=== PATIENT | male | born 1940 | race Caucasian/White ===

== ENCOUNTER → 2018-01-09 06:48 | Outpatient (CLI) | payer MEDICARE, OTHER, SELFPAY ==
--- NOTE | 2018-01-09 16:14 | PFTCOMP ---
COMPLETE PULMONARY FUNCTION TEST INTERPRETATION Brief HPI: Patient is a 77 year old male, currently under the care of myself, who presents to [facility] for complete pulmonary function tests secondary to diagnosis of abnormal pulmonary function test. Respiratory therapist reports good effort and reproducible results. Interpretation: Forced expiration spirometry shows no large airways obstructive ventilatory defect with an FEV1 of 64 % predicted. There is no significant bronchodilator response by ATS criteria. Spirograms are of good quality and plateau normally. The respiratory flow volume loop shows a normal pattern. Lung volumes by body plethysmography show a decreased total lung capacity at 4.48 L, 79% predicted. All other lung volumes are within normal limits. Diffusion capacity by carbon monoxide is normal at 83 % predicted. The airway resistance is elevated. Compared to previous pulmonary function tests from 01/03/2017, there has been a significant improvement in TLC and DLCO. 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
--- NOTE | 2018-01-09 16:17 | PFTCOMP_ITS ---
COMPLETE PULMONARY FUNCTION TEST INTERPRETATION Brief HPI: Patient is a 77 year old male, currently under the care of myself, who presents to [facility] for complete pulmonary function tests secondary to diagnosis of abnormal pulmonary function test. Respiratory therapist reports good effort and reproducible results. Interpretation: Forced expiration spirometry shows no large airways obstructive ventilatory defect with an FEV1 of 64 % predicted. There is no significant bronchodilator response by ATS criteria. Spirograms are of good quality and plateau normally. The respiratory flow volume loop shows a normal pattern. Lung volumes by body plethysmography show a decreased total lung capacity at 4.48 L, 79% predicted. All other lung volumes are within normal limits. Diffusion capacity by carbon monoxide is normal at 83 % predicted. The airway resistance is elevated. Compared to previous pulmonary function tests from 01/03/2017, there has been a significant improvement in TLC and DLCO. 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
== END ==
PROVIDERS: Family Provider Family Medicine Geriatric Medicine; PCP Family Medicine Geriatric Medicine; Visit Provider Internal Medicine Critical Care Medicine
DX: R94.2 Abnormal results of pulmonary function studies (principal)
CPT/HCPCS: 94060; 94726; 94729

== ENCOUNTER → 2018-01-16 10:08 | Outpatient (CLI) | payer MEDICARE, OTHER, SELFPAY ==
[2018-01-16 12:16] LABS: Absolute Lymphocyte Count 1.09 X10^3/ul (0.83-4.51); Basophil# 0.02 X10^3/uL; Basophil% 0.4 % (0-1); Eosinophil# 0.06 X10^3/uL; Eosinophils% 1.3 % (0-5); Hemoglobin 12.1 g/dl (13.0-16.5); Lymphocyte # 1.09 X10^3/ul (4.0); Lymphocyte % 24.2 % (19-41); Mean Corp Hgb Conc 31.8 g/gl (32-36); Mean Corpuscular Hgb 30.7 pg (27.0-32.0); Mean Corpuscular Volume 96.4 fL (80-94); Mean Platelet Vol. 12.2 fl (6.2-12.0); Monocyte# 0.32 X10^3/uL; Monocyte% 7.1 % (0-10); Neutrophil % 66.8 % (47-70); Platelet Count 99 K/mm3 (150-450); RBC Distribution Width CV 14.9 % (11.6-14.6); RBC Distribution Width SD 50.9 fl (35.1-43.9); Red Blood Count 3.94 M/mm3 (4.6-6.2); White Blood Count 4.5 K/mm3 (4.4-11.0)
[2018-01-16 12:27] LABS: POSITIVE COUNT NO; POSITIVE DIFFERENTIAL NO; POSITIVE MORPHOLOGY NO
[2018-01-16 12:32] LABS: ALB/GLOB Ratio 0.8 RATIO (0.9-2.4); AST(SGOT) 67 U/L (15-37); Alanine Aminotransfer ALT/SGPT 46 U/L (16-61); Albumin, Serum 3.2 g/dL (3.2-5.0); Alkaline Phosphatase 162 U/L (45-117); Anion Gap 7 (5-15); BUN 17 mg/dL (7-18); BUN/Creat Ratio 9.8 RATIO (10-20); Calcium,Total 8.6 mg/dL (8.5-10.1); Chloride 109 mmol/L (98-107); Creatinine, Serum 1.74 mg/dL (0.70-1.30); EST Glomerular Filtration Rate 41 mL/min (>60); Est Glom Filt Rate - Afr Amer 49 mL/min (>60); Globulin 4.1 g/dL (2.2-4.2); Glucose 173 mg/dL (74-106); Potassium 4.2 mmol/L (3.5-5.1); Protein, Total 7.3 g/dL (6.4-8.2); Sodium Level 141 mmol/L (136-145); Thyroid Stim Hormone (TSH) 2.96 uIU/mL (0.358-3.74)
== END ==
PROVIDERS: Family Provider Family Medicine Geriatric Medicine; PCP Family Medicine Geriatric Medicine; Visit Provider Family Medicine Geriatric Medicine
DX: E11.9 Type 2 diabetes mellitus without complications (principal); E55.9 Vitamin D deficiency, unspecified; F52.8 Other sexual dysfunction not due to a substance or known physiological condition; I10 Essential (primary) hypertension
CPT/HCPCS: 36415; 80053; 82306; 84403; 84443; 85025

== ENCOUNTER → 2018-01-30 09:41 | Outpatient (CLI) | payer MEDICARE, OTHER, SELFPAY ==
[2018-01-30 10:29] LABS: Protein, Urine (Random) 31.4 mg/dL (<11.9); Protein:Creat Ratio 268 mg/g CRE (0-200)
[2018-01-30 10:43] LABS: PTHIN 142.3 pg/mL (18.4-80.1)
[2018-01-30 10:45] LABS: Vitamin D,25 Hydroxy 34.1 ng/mL (29.95-100.01)
[2018-01-30 10:47] LABS: BUN 14 mg/dL (7-18); BUN/Creat Ratio 8.3 RATIO (10-20); Calcium,Total 8.2 mg/dL (8.5-10.1); Chloride 111 mmol/L (98-107); Creatinine, Serum 1.69 mg/dL (0.70-1.30); EST Glomerular Filtration Rate 42 mL/min (>60); Est Glom Filt Rate - Afr Amer 51 mL/min (>60); Glucose 195 mg/dL (74-106); Phosphorus 2.7 mg/dL (2.5-4.9); Potassium 4.3 mmol/L (3.5-5.1); Sodium Level 144 mmol/L (136-145)
== END ==
PROVIDERS: Family Provider Family Medicine Geriatric Medicine; PCP Family Medicine Geriatric Medicine; Visit Provider Internal Medicine Nephrology
DX: E11.22 Type 2 diabetes mellitus with diabetic chronic kidney disease (principal); N18.3 Chronic kidney disease, stage 3 (moderate)
CPT/HCPCS: 36415; 80069; 82306; 82570; 83970; 84156

== ENCOUNTER → 2018-03-27 11:15 | Outpatient (CLI) | payer MEDICARE, OTHER, SELFPAY ==
[2018-03-27 12:53] LABS: PSA,Total - Annual Screen 1.83 ng/mL (0.00-4.00)
== END ==
PROVIDERS: Family Provider Family Medicine Geriatric Medicine; PCP Family Medicine Geriatric Medicine; Visit Provider Urology
DX: Z12.5 Encounter for screening for malignant neoplasm of prostate (principal); R68.83 Chills (without fever)
CPT/HCPCS: 36415; 84153; 87633; G0103

== ENCOUNTER → 2018-05-16 11:25 | Outpatient (CLI) | payer MEDICARE, OTHER, SELFPAY ==
[2018-05-16 13:00] LABS: Absolute Lymphocyte Count 0.99 X10^3/ul (0.83-4.51); Basophil# 0.01 X10^3/uL; Basophil% 0.2 % (0-1); Eosinophil# 0.04 X10^3/uL; Eosinophils% 0.9 % (0-5); Hematocrit 29.6 % (40-54); Hemoglobin 9.1 g/dl (13.0-16.5); Lymphocyte # 0.99 X10^3/ul (4.0); Lymphocyte % 22.7 % (19-41); Mean Corp Hgb Conc 30.7 g/gl (32-36); Mean Corpuscular Hgb 29.4 pg (27.0-32.0); Mean Corpuscular Volume 95.5 fL (80-94); Mean Platelet Vol. 10.2 fl (6.2-12.0); Monocyte% 6.9 % (0-10); Neutrophil # 3.01 X10^3/uL (2.7-7.7); Neutrophil % 69.1 % (47-70); Platelet Count 105 K/mm3 (150-450); RBC Distribution Width CV 14.9 % (11.6-14.6); RBC Distribution Width SD 52.4 fl (35.1-43.9); White Blood Count 4.4 K/mm3 (4.4-11.0)
[2018-05-16 13:02] LABS: POSITIVE COUNT NO; POSITIVE DIFFERENTIAL NO; POSITIVE MORPHOLOGY NO
[2018-05-16 13:40] LABS: ALB/GLOB Ratio 0.8 RATIO (0.9-2.4); AST(SGOT) 61 U/L (15-37); Alanine Aminotransfer ALT/SGPT 50 U/L (16-61); Albumin, Serum 2.9 g/dL (3.2-5.0); Alkaline Phosphatase 131 U/L (45-117); Anion Gap 6 (5-15); BUN 19 mg/dL (7-18); BUN/Creat Ratio 11.1 RATIO (10-20); Calcium,Total 8.4 mg/dL (8.5-10.1); Chloride 111 mmol/L (98-107); Creatinine, Serum 1.71 mg/dL (0.70-1.30); EST Glomerular Filtration Rate 41 mL/min (>60); Est Glom Filt Rate - Afr Amer 50 mL/min (>60); Globulin 3.8 g/dL (2.2-4.2); Glucose 131 mg/dL (74-106); Potassium 4.2 mmol/L (3.5-5.1); Protein, Total 6.7 g/dL (6.4-8.2); Sodium Level 144 mmol/L (136-145); Thyroid Stim Hormone (TSH) 1.45 uIU/mL (0.358-3.74); Uric Acid 5.4 mg/dL (3.5-7.2)
[2018-05-17 08:47] LABS: Vitamin D,25 Hydroxy 43.7 ng/mL (29.95-100.01)
== END ==
PROVIDERS: Family Provider Family Medicine Geriatric Medicine; PCP Family Medicine Geriatric Medicine; Visit Provider Family Medicine Geriatric Medicine
DX: E11.9 Type 2 diabetes mellitus without complications (principal); E55.9 Vitamin D deficiency, unspecified; F52.8 Other sexual dysfunction not due to a substance or known physiological condition; I10 Essential (primary) hypertension; M10.9 Gout, unspecified
CPT/HCPCS: 36415; 80053; 82306; 84403; 84443; 84550; 85025

== ENCOUNTER → 2018-06-12 10:44 | Outpatient (CLI) | payer MEDICARE, OTHER, SELFPAY ==
[2018-06-12 13:38] LABS: Ferritin 12 ng/mL (26-388); Iron 60 ug/dL (65-175); Iron Binding Capacity,Total 407 ug/dL (250-450)
== END ==
PROVIDERS: Family Provider Family Medicine Geriatric Medicine; PCP Family Medicine Geriatric Medicine; Visit Provider Family Medicine Geriatric Medicine
DX: D64.9 Anemia, unspecified (principal)
CPT/HCPCS: 36415; 82728; 83540; 83550

== ENCOUNTER → 2018-06-20 13:24 | Outpatient (CLI) | payer MEDICARE, OTHER, SELFPAY ==
[2018-06-20 13:50] VITALS: BP 135/58; PULSE 65; RESP 18; TEMP 36.5; O2SAT 98; BMI 39.1
== END ==
PROVIDERS: Family Provider Family Medicine Geriatric Medicine; PCP Family Medicine Geriatric Medicine; Visit Provider Family Medicine Geriatric Medicine
DX: D50.9 Iron deficiency anemia, unspecified (principal); N18.3 Chronic kidney disease, stage 3 (moderate)
CPT/HCPCS: 96365; J1756; J7050; A4216

== ENCOUNTER → 2018-06-23 14:24 | Outpatient (CLI) | payer MEDICARE, OTHER, SELFPAY ==
[2018-06-23 14:33] VITALS: BP 167/70; PULSE 69; RESP 16; TEMP 37.3; O2SAT 99; BMI 39.1
== END ==
PROVIDERS: Family Provider Family Medicine Geriatric Medicine; PCP Family Medicine Geriatric Medicine; Visit Provider Family Medicine Geriatric Medicine
DX: D50.9 Iron deficiency anemia, unspecified (principal); N18.3 Chronic kidney disease, stage 3 (moderate)
CPT/HCPCS: 96365; J1756; J7050; A4216

== ENCOUNTER → 2018-06-26 14:27 | Outpatient (CLI) | payer MEDICARE, OTHER, SELFPAY ==
[2018-06-26 14:34] VITALS: BP 166/74; PULSE 64; RESP 16; TEMP 37.1; BMI 39.1
== END ==
PROVIDERS: Family Provider Family Medicine Geriatric Medicine; PCP Family Medicine Geriatric Medicine; Visit Provider Family Medicine Geriatric Medicine
DX: D50.9 Iron deficiency anemia, unspecified (principal); N18.3 Chronic kidney disease, stage 3 (moderate)
CPT/HCPCS: 96365; J1756; J7040; A4216

== ENCOUNTER → 2018-06-28 14:23 | Outpatient (CLI) | payer MEDICARE, OTHER, SELFPAY ==
[2018-06-28 14:31] VITALS: BP 145/95; PULSE 64; RESP 18; TEMP 36.9; O2SAT 99
== END ==
PROVIDERS: Family Provider Family Medicine Geriatric Medicine; PCP Family Medicine Geriatric Medicine; Visit Provider Family Medicine Geriatric Medicine
DX: N18.3 Chronic kidney disease, stage 3 (moderate) (principal); D50.9 Iron deficiency anemia, unspecified
CPT/HCPCS: 96365; J1756; J7050; A4216

== ENCOUNTER → 2018-06-30 14:30 | Outpatient (CLI) | payer MEDICARE, OTHER, SELFPAY ==
[2018-06-30 14:53] VITALS: BP 153/59; PULSE 62; RESP 16; TEMP 37.1
== END ==
PROVIDERS: Family Provider Family Medicine Geriatric Medicine; PCP Family Medicine Geriatric Medicine; Visit Provider Family Medicine Geriatric Medicine
DX: D50.9 Iron deficiency anemia, unspecified (principal); N18.3 Chronic kidney disease, stage 3 (moderate)
CPT/HCPCS: 96365; J1756; J7050; A4216

== ENCOUNTER → 2018-07-07 09:47 | Outpatient (CLI) | payer MEDICARE, OTHER, SELFPAY ==
[2018-07-07 13:00] LABS: Ferritin 109 ng/mL (26-388); Iron 73 ug/dL (65-175); Iron Binding Capacity,Total 337 ug/dL (250-450)
== END ==
PROVIDERS: Family Provider Family Medicine Geriatric Medicine; PCP Family Medicine Geriatric Medicine; Referring Provider Family Medicine Geriatric Medicine; Visit Provider Family Medicine Geriatric Medicine
DX: D64.9 Anemia, unspecified (principal)
CPT/HCPCS: 36415; 82728; 83540; 83550

== ENCOUNTER → 2018-07-21 10:23 | Outpatient (CLI) | payer MEDICARE, OTHER, SELFPAY | PROVIDERS: Family Provider Family Medicine Geriatric Medicine; PCP Family Medicine Geriatric Medicine; Visit Provider Family Medicine Geriatric Medicine | DX: R53.83 Other fatigue (principal) | CPT/HCPCS: 36415; 85014; 85018 ==

== ENCOUNTER → 2019-01-09 08:30 | Outpatient (CLI) | payer MEDICARE, OTHER, SELFPAY ==
--- NOTE | 2019-01-09 13:58 | PFTCOMP ---
COMPLETE PULMONARY FUNCTION TEST INTERPRETATION Brief HPI: Patient is a 78 year old male, currently under the care of myself, who presents to [facility] for complete pulmonary function tests secondary to diagnosis of dyspnea. Respiratory therapist reports good effort and reproducible results. Interpretation: Forced expiration spirometry shows no large airways obstructive ventilatory defect with an FEV1 of 63% predicted. There is no significant bronchodilator response by strict ATS criteria. Spirograms are of good quality and plateau normally. The respiratory flow volume loop shows a normal pattern. Lung volumes by body plethysmography show a decreased total lung capacity at 4.49 L, 79% predicted. All other lung volumes are within normal limits. Diffusion capacity by carbon monoxide is decreased at 62% predicted. The airway resistance is normal. Compared to previous pulmonary function tests from 01/09/2018, there has been a significant reduction in DLCO by 26%. Impression: Mild restrictive ventilatory defect with a reduction diffusion capacity that is out of proportion. Significant worsening compared to previous study.
--- NOTE | 2019-01-09 14:01 | PFTCOMP_ITS ---
COMPLETE PULMONARY FUNCTION TEST INTERPRETATION Brief HPI: Patient is a 78 year old male, currently under the care of myself, who presents to [facility] for complete pulmonary function tests secondary to diagnosis of dyspnea. Respiratory therapist reports good effort and reproducible results. Interpretation: Forced expiration spirometry shows no large airways obstructive ventilatory defect with an FEV1 of 63% predicted. There is no significant bronchodilator response by strict ATS criteria. Spirograms are of good quality and plateau normally. The respiratory flow volume loop shows a normal pattern. Lung volumes by body plethysmography show a decreased total lung capacity at 4.49 L, 79% predicted. All other lung volumes are within normal limits. Diffusion capacity by carbon monoxide is decreased at 62% predicted. The airway resistance is normal. Compared to previous pulmonary function tests from 01/09/2018, there has been a significant reduction in DLCO by 26%. Impression: Mild restrictive ventilatory defect with a reduction diffusion capacity that is out of proportion. Significant worsening compared to previous study.
== END ==
PROVIDERS: Family Provider Family Medicine Geriatric Medicine; PCP Family Medicine Geriatric Medicine; Referring Provider Internal Medicine Critical Care Medicine; Visit Provider Internal Medicine Critical Care Medicine
DX: J67.0 Farmer's lung (principal); E66.01 Morbid (severe) obesity due to excess calories
CPT/HCPCS: 94060; 94726; 94729

== ENCOUNTER → 2019-01-15 10:29 | Outpatient (CLI) | payer MEDICARE, OTHER, SELFPAY ==
[2019-01-15 12:53] LABS: Vitamin D,25 Hydroxy 28.8 ng/mL (29.95-100.01)
[2019-01-15 13:04] LABS: Absolute Lymphocyte Count 0.86 X10^3/ul (0.83-4.51); Absolute Neutrophil Count 2.7 X10^3/uL (2.0-7.7); Basophil# 0.01 X10^3/uL; Basophil% 0.3 % (0-1); Eosinophil# 0.06 X10^3/uL; Eosinophils% 1.5 % (0-5); Hematocrit 34.3 % (40-54); Hemoglobin 11.1 g/dl (13.0-16.5); Lymphocyte # 0.86 X10^3/ul (4.0); Lymphocyte % 21.9 % (19-41); Mean Corp Hgb Conc 32.4 g/gl (32-36); Mean Corpuscular Hgb 30.2 pg (27.0-32.0); Mean Corpuscular Volume 93.5 fL (80-94); Mean Platelet Vol. 10.8 fl (6.2-12.0); Monocyte% 7.7 % (0-10); Neutrophil # 2.69 X10^3/uL (2.7-7.7); Neutrophil % 68.6 % (47-70); Platelet Count 103 K/mm3 (150-450); RBC Distribution Width CV 19.4 % (11.6-14.6); RBC Distribution Width SD 66.8 fl (35.1-43.9); Red Blood Count 3.67 M/mm3 (4.6-6.2); White Blood Count 3.9 K/mm3 (4.4-11.0)
[2019-01-15 13:06] LABS: ALB/GLOB Ratio 0.6 RATIO (0.9-2.4); AST(SGOT) 68 U/L (15-37); Alanine Aminotransfer ALT/SGPT 44 U/L (16-61); Albumin, Serum 2.3 g/dL (3.2-5.0); Alkaline Phosphatase 181 U/L (45-117); Anion Gap 3 (5-15); BUN 13 mg/dL (7-18); BUN/Creat Ratio 8.3 RATIO (10-20); Calcium,Total 7.8 mg/dL (8.5-10.1); Chloride 112 mmol/L (98-107); Creatinine, Serum 1.57 mg/dL (0.70-1.30); Differential Indicated SCAN CRITERIA MET; EST Glomerular Filtration Rate 46 mL/min (>60); Est Glom Filt Rate - Afr Amer 55 mL/min (>60); Globulin 4.1 g/dL (2.2-4.2); Glucose 178 mg/dL (74-106); POSITIVE COUNT NO; POSITIVE DIFFERENTIAL NO; POSITIVE MORPHOLOGY YES; Protein, Total 6.4 g/dL (6.4-8.2); Sodium Level 141 mmol/L (136-145); Thyroid Stim Hormone (TSH) 1.42 uIU/mL (0.358-3.74); Uric Acid 4.4 mg/dL (3.5-7.2)
[2019-01-15 13:59] LABS: Anisocytosis 1+
== END ==
PROVIDERS: Family Provider Family Medicine Geriatric Medicine; PCP Family Medicine Geriatric Medicine; Visit Provider Family Medicine Geriatric Medicine
DX: E11.9 Type 2 diabetes mellitus without complications (principal); I10 Essential (primary) hypertension; E55.9 Vitamin D deficiency, unspecified; F52.8 Other sexual dysfunction not due to a substance or known physiological condition; M10.9 Gout, unspecified
CPT/HCPCS: 36415; 80053; 82306; 84403; 84443; 84550; 85025

== ENCOUNTER → 2019-01-24 | Outpatient (CLI) | payer MEDICARE, OTHER, SELFPAY ==
[2018-08-15 08:47] VITALS: BMI 41.5
--- NOTE | 2019-01-24 16:54 | RAD_ITS ---
STUDY: X-RAY - ABDOMEN/PELVIS REASON FOR EXAM: Male, 78 years old. Abdominal pain. Fecal impaction. TECHNIQUE: 3 supine views of the abdomen COMPARISON: None. FINDINGS: There is no bowel obstruction. There is air and stool to the level of the rectum. There is no significant constipation. There are degenerative changes noted in the spine. RAD/Abdomen Single View IMPRESSION: No bowel obstruction. No significant constipation. Electronically Signed: Armen Menezes, at 17:26 EDT Tel , Service support ,
--- NOTE | 2019-01-24 16:57 | RAD_ITS ---
STUDY: X-RAY CHEST REASON FOR EXAM: Male, 78 years old. Shortness of breath TECHNIQUE: Frontal and lateral views of the chest COMPARISON: 05/23/2017 FINDINGS: The lungs are clear. There are no pleural effusions. There is no pneumothorax. The heart is normal in size. The visualized osseous structures are within normal limits. RAD/Chest PA and Lateral IMPRESSION: No acute thoracic pathology. Electronically Signed: Armen Menezes, at 17:23 EDT Tel , Service support ,
[2019-01-24 17:16] LABS: Absolute Lymphocyte Count 0.91 X10^3/ul (0.83-4.51); Absolute Neutrophil Count 2.8 X10^3/uL (2.0-7.7); Basophil# 0.01 X10^3/uL; Basophil% 0.2 % (0-1); Eosinophil# 0.06 X10^3/uL; Eosinophils% 1.4 % (0-5); Hematocrit 33.6 % (40-54); Hemoglobin 10.9 g/dl (13.0-16.5); Lymphocyte # 0.91 X10^3/ul (4.0); Lymphocyte % 21.6 % (19-41); Mean Corp Hgb Conc 32.4 g/gl (32-36); Mean Corpuscular Hgb 30.1 pg (27.0-32.0); Mean Corpuscular Volume 92.8 fL (80-94); Mean Platelet Vol. 9.7 fl (6.2-12.0); Monocyte# 0.45 X10^3/uL; Monocyte% 10.7 % (0-10); Neutrophil # 2.77 X10^3/uL (2.7-7.7); Neutrophil % 65.9 % (47-70); Platelet Count 95 K/mm3 (150-450); RBC Distribution Width CV 18.8 % (11.6-14.6); RBC Distribution Width SD 63.8 fl (35.1-43.9); Red Blood Count 3.62 M/mm3 (4.6-6.2); White Blood Count 4.2 K/mm3 (4.4-11.0)
[2019-01-24 17:18] LABS: POSITIVE COUNT NO; POSITIVE DIFFERENTIAL NO; POSITIVE MORPHOLOGY NO
[2019-01-24 17:22] LABS: Albumin, Serum 2.4 g/dL (3.2-5.0); BUN 16 mg/dL (7-18); BUN/Creat Ratio 9.9 RATIO (10-20); Calcium,Total 8.3 mg/dL (8.5-10.1); Chloride 112 mmol/L (98-107); Creatinine, Serum 1.62 mg/dL (0.70-1.30); EST Glomerular Filtration Rate 44 mL/min (>60); Est Glom Filt Rate - Afr Amer 53 mL/min (>60); Glucose 162 mg/dL (74-106); Phosphorus 2.2 mg/dL (2.5-4.9); Potassium 4.1 mmol/L (3.5-5.1); Sodium Level 143 mmol/L (136-145)
[2019-01-24 17:25] LABS: Protein, Urine (Random) 24.6 mg/dL (<11.9); Protein:Creat Ratio 142 mg/g CRE (0-200)
[2019-01-24 17:48] LABS: BNP,B-Type NATRIURETIC PEPTIDE 87.6 pg/mL (0-100)
== END | disposition home or self-care (01) ==
LOC: POLAB3 16:37 → RAD 16:53
PROVIDERS: Internal Medicine Nephrology; Family Provider Family Medicine Geriatric Medicine; PCP Family Medicine Geriatric Medicine; Referring Provider Family Medicine Geriatric Medicine; Visit Provider Family Medicine Geriatric Medicine
DX: R06.02 Shortness of breath (principal); E11.22 Type 2 diabetes mellitus with diabetic chronic kidney disease; N18.3 Chronic kidney disease, stage 3 (moderate); K56.41 Fecal impaction
CPT/HCPCS: 36415; 71046; 74018; 80069; 82570; 83880; 83970; 84156; 85025

== ENCOUNTER → 2019-01-25 13:07 | Outpatient (CLI) | payer MEDICARE, OTHER, SELFPAY ==
[2018-08-15 08:47] VITALS: BMI 41.5
== END ==
PROVIDERS: Family Provider Family Medicine Geriatric Medicine; PCP Family Medicine Geriatric Medicine; Referring Provider Family Medicine Geriatric Medicine; Visit Provider Family Medicine Geriatric Medicine
DX: R06.02 Shortness of breath (principal)
CPT/HCPCS: 93306; Q9957; A4216; C8929

== ENCOUNTER → 2019-01-29 11:54 | Outpatient (CLI) | payer MEDICARE, OTHER, SELFPAY ==
[2019-01-29 08:15] VITALS: BMI 42.9
[2019-01-29 13:27] LABS: Anion Gap 5 (5-15); BUN 17 mg/dL (7-18); BUN/Creat Ratio 10.4 RATIO (10-20); Calcium,Total 8.1 mg/dL (8.5-10.1); Chloride 109 mmol/L (98-107); Creatinine, Serum 1.64 mg/dL (0.70-1.30); EST Glomerular Filtration Rate 43 mL/min (>60); Est Glom Filt Rate - Afr Amer 52 mL/min (>60); Glucose 165 mg/dL (74-106); Potassium 3.6 mmol/L (3.5-5.1); Sodium Level 141 mmol/L (136-145)
== END ==
PROVIDERS: Family Provider Family Medicine Geriatric Medicine; PCP Family Medicine Geriatric Medicine; Visit Provider Family Medicine Geriatric Medicine
DX: N18.3 Chronic kidney disease, stage 3 (moderate) (principal)
CPT/HCPCS: 36415; 80048

== ENCOUNTER → 2019-02-02 10:05 | Outpatient (CLI) | payer MEDICARE, OTHER, SELFPAY ==
[2019-01-29 08:15] VITALS: BMI 42.9
[2019-02-02 12:58] LABS: Albumin, Serum 2.1 g/dL (3.2-5.0); BUN 14 mg/dL (7-18); Calcium,Total 7.8 mg/dL (8.5-10.1); Chloride 105 mmol/L (98-107); Creatinine, Serum 1.55 mg/dL (0.70-1.30); EST Glomerular Filtration Rate 46 mL/min (>60); Est Glom Filt Rate - Afr Amer 56 mL/min (>60); Glucose 118 mg/dL (74-106); Phosphorus 2.4 mg/dL (2.5-4.9); Potassium 3.6 mmol/L (3.5-5.1); Sodium Level 141 mmol/L (136-145)
[2019-02-02 13:02] LABS: Protein, Urine (Random) 19.5 mg/dL (<11.9); Protein:Creat Ratio 127 mg/g CRE (0-200)
[2019-02-02 13:17] LABS: PTHIN 112.2 pg/mL (18.4-80.1)
== END ==
PROVIDERS: Family Provider Family Medicine Geriatric Medicine; PCP Family Medicine Geriatric Medicine; Visit Provider Internal Medicine Nephrology
DX: E11.22 Type 2 diabetes mellitus with diabetic chronic kidney disease (principal); N18.3 Chronic kidney disease, stage 3 (moderate)
CPT/HCPCS: 36415; 80069; 82570; 83970; 84156

== ENCOUNTER → 2019-02-07 14:58 | Outpatient (CLI) | payer MEDICARE, OTHER, SELFPAY ==
[2019-01-29 08:15] VITALS: BMI 42.9
[2019-02-07 16:05] LABS: Hematocrit 33.7 % (40-54); Hemoglobin 10.9 g/dl (13.0-16.5); Mean Corp Hgb Conc 32.3 g/gl (32-36); Mean Corpuscular Hgb 30.4 pg (27.0-32.0); Mean Corpuscular Volume 93.9 fL (80-94); Mean Platelet Vol. 10.3 fl (6.2-12.0); Platelet Count 115 K/mm3 (150-450); RBC Distribution Width CV 17.5 % (11.6-14.6); RBC Distribution Width SD 60.1 fl (35.1-43.9); Red Blood Count 3.59 M/mm3 (4.6-6.2); White Blood Count 4.7 K/mm3 (4.4-11.0)
[2019-02-07 16:06] LABS: Scan Indicated on CBC? Y/N NO
[2019-02-07 16:21] LABS: AST(SGOT) 66 U/L (15-37); Alanine Aminotransfer ALT/SGPT 36 U/L (16-61); Albumin, Serum 2.1 g/dL (3.2-5.0); Alkaline Phosphatase 163 U/L (45-117); Bilirubin, Direct 0.67 mg/dL (0.00-0.30); Globulin 4.6 g/dL (2.2-4.2); Protein, Total 6.7 g/dL (6.4-8.2)
[2019-02-07 16:23] LABS: International Normalized Ratio 1.5; Partial Thromboplast Time 40.8 Seconds (24.1-36.2); Prothrombin Time (Protime)PT. 17.8 SECONDS (11.7-14.9)
[2019-02-09 10:28] LABS: AFP, Tumor Marker 1.6 ng/mL (0.0-8.3)
== END ==
PROVIDERS: Family Provider Family Medicine Geriatric Medicine; PCP Family Medicine Geriatric Medicine; Referring Provider Internal Medicine Gastroenterology; Visit Provider Internal Medicine Gastroenterology
DX: K76.9 Liver disease, unspecified (principal); K92.0 Hematemesis
CPT/HCPCS: 36415; 80076; 82105; 85027; 85610; 85730

== ENCOUNTER → 2019-02-12 12:18 | Outpatient (CLI) | payer MEDICARE, OTHER, SELFPAY ==
[2019-01-29 08:15] VITALS: BMI 42.9
[2019-02-12 12:57] LABS: Absolute Lymphocyte Count 0.81 X10^3/ul (0.83-4.51); Absolute Neutrophil Count 3.7 X10^3/uL (2.0-7.7); Basophil# 0.01 X10^3/uL; Basophil% 0.2 % (0-1); Eosinophil# 0.06 X10^3/uL; Eosinophils% 1.2 % (0-5); Hematocrit 32.9 % (40-54); Hemoglobin 10.8 g/dl (13.0-16.5); Lymphocyte # 0.81 X10^3/ul (4.0); Lymphocyte % 16.1 % (19-41); Mean Corp Hgb Conc 32.8 g/gl (32-36); Mean Corpuscular Hgb 30.8 pg (27.0-32.0); Mean Corpuscular Volume 93.7 fL (80-94); Mean Platelet Vol. 10.3 fl (6.2-12.0); Monocyte% 9.9 % (0-10); Neutrophil # 3.65 X10^3/uL (2.7-7.7); Neutrophil % 72.4 % (47-70); Platelet Count 113 K/mm3 (150-450); RBC Distribution Width CV 16.9 % (11.6-14.6); RBC Distribution Width SD 55.8 fl (35.1-43.9); Red Blood Count 3.51 M/mm3 (4.6-6.2)
[2019-02-12 12:59] LABS: POSITIVE COUNT NO; POSITIVE DIFFERENTIAL NO; POSITIVE MORPHOLOGY NO
[2019-02-12 13:15] LABS: Erythrocyte Sedimentation Rate 54 mm/hr (0-20)
--- NOTE | 2019-02-12 14:21 | VDUE_ITS ---
Reason For Study: Localized Edema Right Proximal Left Proximal Right jugular vein is spontaneous, widely Left jugular vein is spontaneous, widely patent, phasic, with no intraluminal patent, phasic, with no intraluminal echogenicity noted. echogenicity noted. Right subclavian vein is spontaneous, widely Left subclavian vein is spontaneous, widely patent, phasic, with no intraluminal patent, phasic, with no intraluminal echogenicity noted. echogenicity noted. Right Lower Arm Left Arm Right radial vein is compressible. Left axillary vein is spontaneous, patent, Right ulnar vein is compressible. phasic, competent, compressible and Right Arm demonstrates augmentation. Right axillary vein is spontaneous, patent, Left brachial vein is compressible. phasic, competent, compressible and Left cephalic vein is compressible. demonstrates augmentation. Left basilic vein is compressible. Right brachial vein is compressible. Left Lower Arm Right cephalic vein is compressible. Left radial vein is compressible. Right basilic vein is compressible. Left ulnar vein is compressible. Interpretation Summary Deep veins of the upper extremities are bilaterally patent and compressible segmentally. There is no evidence of deep vein thrombosis on either side. The superficial veins of the upper extremities, the basilic and cephalic veins, are patent and compressible bilaterally. There is no evidence of upper extremity superficial thrombophlebitis in the upper extremities involving the veins imaged. Ordering Physician: Saul Gonzalez Chi Referring Physician: Saul Gonzalez Chi Performed By: Lisa Leal, NNAMDI, RVT ?
[2019-02-12 14:41] LABS: Anion Gap 6 (5-15); BUN 18 mg/dL (7-18); BUN/Creat Ratio 10.1 RATIO (10-20); Calcium,Total 7.9 mg/dL (8.5-10.1); Chloride 105 mmol/L (98-107); Creatinine, Serum 1.79 mg/dL (0.70-1.30); EST Glomerular Filtration Rate 39 mL/min (>60); Est Glom Filt Rate - Afr Amer 47 mL/min (>60); Glucose 156 mg/dL (74-106); Potassium 3.6 mmol/L (3.5-5.1); Sodium Level 140 mmol/L (136-145); Uric Acid 5.6 mg/dL (3.5-7.2)
== END ==
PROVIDERS: Family Provider Family Medicine Geriatric Medicine; PCP Family Medicine Geriatric Medicine; Visit Provider Family Medicine Geriatric Medicine
DX: L03.119 Cellulitis of unspecified part of limb (principal); M10.9 Gout, unspecified; R60.0 Localized edema
CPT/HCPCS: 36415; 80048; 84550; 85025; 85652; 86140; 93970

== ENCOUNTER → 2019-02-22 14:27 | Outpatient (CLI) | payer MEDICARE, OTHER, SELFPAY ==
[2019-01-29 08:15] VITALS: BMI 42.9
--- NOTE | 2019-02-22 14:29 | CT_ITS ---
STUDY: CT ABDOMEN AND PELVIS WITH CONTRAST REASON FOR EXAM: Male, 78 years old. Cirrhosis RADIATION DOSAGE (If Supplied By Facility): CTDIvol = ( 26.70 ) mGy, DLP = ( 1954.57 ) mGycm TECHNIQUE: Transaxial images were obtained from the dome of the diaphragm to the symphysis pubis with oral contrast. 75CC ml of Isovue 300 contrast was administered. Sagittal and coronal images were reconstructed. Individualized dose optimization techniques were used for this CT. COMPARISON: None. FINDINGS: There are small bilateral pleural effusions with overlying atelectasis. The visualized portions of the heart and pericardium are within normal limits. There are small calcified gallstones present. The liver is nodular in contour, consistent with cirrhosis. There are no focal hepatic lesions identified on this single phase postcontrast exam. The spleen is enlarged, measuring 15.9 cm. There are calcified granulomata noted in the spleen. The pancreas is within normal limits. The adrenal glands are within normal limits. There are no renal or ureteral stones. There is no hydronephrosis. There are no focal renal lesions. Normal visualized stomach. There is no bowel obstruction or inflammation. The appendix is visualized and appears normal. The aorta is normal in caliber. There are varices noted in the upper abdomen and paraesophageal region. There is a large amount of free fluid. There is no free air, fluid collection or lymphadenopathy. The prostate is enlarged. There are no destructive osseous lesions. There are degenerative changes noted in the spine. CT/Abdomen/Pelvis WITH Contrast IMPRESSION: Cirrhotic liver. No focal hepatic lesions identified on the single phase postcontrast exam. If indicated, a dedicated liver protocol CT or MRI can be performed. Signs of portal hypertension, including splenomegaly and varices. Large amount of ascites. Gallstones. Enlarged prostate. Small bilateral pleural effusions with overlying atelectasis. Electronically Signed: Armen Menezes, at 20:29 EDT Tel , Service support ,
== END ==
PROVIDERS: Family Provider Family Medicine Geriatric Medicine; PCP Family Medicine Geriatric Medicine; Referring Provider Internal Medicine Gastroenterology; Visit Provider Internal Medicine Gastroenterology
DX: K74.60 Unspecified cirrhosis of liver (principal)
CPT/HCPCS: 74177; Q9967

== ENCOUNTER → 2019-02-28 14:17 | Outpatient (CLI) | payer MEDICARE, OTHER, SELFPAY ==
[2019-01-29 08:15] VITALS: BMI 42.9
[2019-02-28 15:29] LABS: Albumin, Serum 1.9 g/dL (3.2-5.0); BUN 12 mg/dL (7-18); BUN/Creat Ratio 8.1 RATIO (10-20); Calcium,Total 8.1 mg/dL (8.5-10.1); Chloride 106 mmol/L (98-107); Creatinine, Serum 1.49 mg/dL (0.70-1.30); EST Glomerular Filtration Rate 48 mL/min (>60); Est Glom Filt Rate - Afr Amer 58 mL/min (>60); Glucose 115 mg/dL (74-106); Phosphorus 2.5 mg/dL (2.5-4.9); Potassium 3.2 mmol/L (3.5-5.1); Sodium Level 141 mmol/L (136-145)
[2019-02-28 17:13] LABS: Urine Sodium 15 mmol/L (Not Establ.)
== END ==
PROVIDERS: Family Provider Family Medicine Geriatric Medicine; PCP Family Medicine Geriatric Medicine; Visit Provider Internal Medicine Nephrology
DX: N17.9 Acute kidney failure, unspecified (principal); K72.90 Hepatic failure, unspecified without coma
CPT/HCPCS: 36415; 80069; 82140; 84300

== ENCOUNTER → 2019-03-01 14:10 | Outpatient (CLI) | payer MEDICARE, OTHER, SELFPAY ==
[2019-01-29 08:15] VITALS: BMI 42.9
[2019-02-27 17:36] LABS: International Normalized Ratio 1.5; Prothrombin Time (Protime)PT. 18.3 SECONDS (11.7-14.9)
[2019-02-27 17:37] LABS: Partial Thromboplast Time 44.2 Seconds (24.1-36.2)
--- NOTE | 2019-03-01 14:12 | US_ITS ---
PROCEDURE: Ultrasound guided paracentesis. DATE OF EXAMINATION: March 01, 2019.. INDICATION: Male, 78 years old. Ascites. PHYSICIAN: Felipe Nguyen M.D. TECHNIQUE: The risks, benefits, and alternatives to the procedure were explained to the patient. The specific risks of bleeding, infection, and damage to bowel were detailed and accepted. Witnessed informed consent was obtained. The abdomen was ultrasonographically surveyed. An appropriate pocket of fluid was identified at the right lower quadrant. The skin were cleaned and prepped in the usual sterile fashion. Using ultrasound guidance, the peritoneal cavity was accessed with a 5-Malay paracentesis needle/catheter system. The trocar was removed. A total of 5600 ml of justino-colored fluid were removed from the peritoneal cavity. The catheter was removed and a sterile dressing was applied. The procedure was well tolerated. US/Paracentesis with US IMPRESSION: Ultrasound guided paracentesis. Electronically Signed: Felipe Nguyen, at 8:40 EDT , Service support ,
[2019-03-01 15:21] VITALS: BP 124/61; BP 141/72; BP 145/68; BP 147/68; BP 147/70; BP 148/75; PULSE 71; PULSE 74; PULSE 76; PULSE 77; RESP 16; O2SAT 94; O2SAT 96; O2SAT 97; O2SAT 98
== END ==
PROVIDERS: Family Provider Family Medicine Geriatric Medicine; PCP Family Medicine Geriatric Medicine; Referring Provider Internal Medicine Gastroenterology; Visit Provider Internal Medicine Gastroenterology
DX: K74.60 Unspecified cirrhosis of liver (principal); R18.8 Other ascites
CPT/HCPCS: 36415; 49083; 85610; 85730

== ENCOUNTER → 2019-03-09 13:05 | Outpatient (CLI) | payer MEDICARE, OTHER, SELFPAY ==
[2019-01-29 08:15] VITALS: BMI 42.9
--- NOTE | 2019-03-09 13:09 | US_ITS ---
PROCEDURE: Ultrasound guided paracentesis. DATE OF EXAMINATION: March 09, 2019. INDICATION: Male, 78 years old. Ascites. PHYSICIAN: Felipe Nguyen M.D. TECHNIQUE: The risks, benefits, and alternatives to the procedure were explained to the patient. The specific risks of bleeding, infection, and damage to bowel were detailed and accepted. Witnessed informed consent was obtained. The abdomen was ultrasonographically surveyed. An appropriate pocket of fluid was identified at the right lower quadrant. The skin were cleaned and prepped in the usual sterile fashion. Using ultrasound guidance, the peritoneal cavity was accessed with a 5-Irish paracentesis needle/catheter system. The trocar was removed. A total of 5550 ml of justino-colored fluid were removed from the peritoneal cavity. The catheter was removed and a sterile dressing was applied. The procedure was well tolerated. US/Paracentesis with US IMPRESSION: Ultrasound guided paracentesis. Electronically Signed: Felipe Nguyen, at 14:41 EDT , Service support ,
[2019-03-09 14:26] VITALS: BP 122/48; BP 128/62; BP 130/54; BP 130/58; PULSE 64; PULSE 65; PULSE 66; PULSE 67; RESP 16; O2SAT 96; O2SAT 97; O2SAT 98
== END ==
PROVIDERS: Family Provider Family Medicine Geriatric Medicine; PCP Family Medicine Geriatric Medicine; Referring Provider Internal Medicine Gastroenterology; Visit Provider Internal Medicine Gastroenterology
DX: K74.60 Unspecified cirrhosis of liver (principal); R18.8 Other ascites
CPT/HCPCS: 49083

== ENCOUNTER → 2019-03-14 09:07 | Outpatient (CLI) | payer MEDICARE, OTHER, SELFPAY ==
[2019-01-29 08:15] VITALS: BMI 42.9
--- NOTE | 2019-03-14 09:10 | US_ITS ---
PROCEDURE: Ultrasound guided paracentesis. DATE OF EXAMINATION: March 14, 2019.. INDICATION: Male, 78 years old. Ascites. PHYSICIAN: Felipe Nguyen M.D. TECHNIQUE: The risks, benefits, and alternatives to the procedure were explained to the patient. The specific risks of bleeding, infection, and damage to bowel were detailed and accepted. Witnessed informed consent was obtained. The abdomen was ultrasonographically surveyed. An appropriate pocket of fluid was identified at the right lower quadrant. The skin were cleaned and prepped in the usual sterile fashion. Using ultrasound guidance, the peritoneal cavity was accessed with a 5-Bermudian paracentesis needle/catheter system. The trocar was removed. A total of 2750 ml of justino-colored fluid were removed from the peritoneal cavity. The catheter was removed and a sterile dressing was applied. The procedure was well tolerated. US/Paracentesis with US IMPRESSION: Ultrasound guided paracentesis. Electronically Signed: Felipe Nguyen, at 11:02 EDT , Service support ,
[2019-03-14 10:27] VITALS: BP 121/64; BP 123/60; BP 130/61; PULSE 63; PULSE 65; RESP 18; O2SAT 97; O2SAT 98; O2SAT 99
[2019-03-14 12:51] LABS: Albumin, Serum 1.7 g/dL (3.2-5.0); BUN 19 mg/dL (7-18); BUN/Creat Ratio 15.8 RATIO (10-20); Calcium,Total 8.2 mg/dL (8.5-10.1); Chloride 103 mmol/L (98-107); EST Glomerular Filtration Rate 62 mL/min (>60); Est Glom Filt Rate - Afr Amer 75 mL/min (>60); Glucose 166 mg/dL (74-106); Phosphorus 2.6 mg/dL (2.5-4.9); Potassium 3.6 mmol/L (3.5-5.1); Sodium Level 139 mmol/L (136-145)
== END ==
PROVIDERS: Family Provider Family Medicine Geriatric Medicine; PCP Family Medicine Geriatric Medicine; Referring Provider Internal Medicine Gastroenterology; Visit Provider Internal Medicine Gastroenterology
DX: K74.60 Unspecified cirrhosis of liver (principal); R18.8 Other ascites; N17.9 Acute kidney failure, unspecified
CPT/HCPCS: 36415; 49083; 80069

== ENCOUNTER → 2019-03-20 13:47 | Outpatient (CLI) | payer MEDICARE, OTHER, SELFPAY ==
[2019-01-29 08:15] VITALS: BMI 42.9
--- NOTE | 2019-03-20 13:54 | US_ITS ---
PROCEDURE: ULTRASOUND GUIDED PARACENTESIS CLINICAL HISTORY: Male, 78 years old. CONSENT: Time-Out Called: Yes. Consent form signed: Yes. PT-PTT Levels Checked: Yes. SEDATION: TECHNIQUE: FINDINGS: FLUID PRE-PROCEDURE Under ultrasound guidance and following appropriate antiseptic preparation and local anesthesia a 6 Salvadorean draining catheter was inserted in the right lower quadrant. 6100 mL of justino-colored fluid were aspirated. The patient tolerated the procedure well. US/Paracentesis with US IMPRESSION: Uneventful paracentesis. Electronically Signed: Kleber Velasquez, at 16:31 EDT Tel , Service support ,
[2019-03-20 15:30] VITALS: BP 117/35; BP 139/57; BP 144/64; PULSE 69; PULSE 70; PULSE 71; RESP 18; O2SAT 93; O2SAT 97
[2019-03-20 17:55] LABS: Albumin, Serum 1.6 g/dL (3.2-5.0); BUN 19 mg/dL (7-18); BUN/Creat Ratio 10.4 RATIO (10-20); Chloride 103 mmol/L (98-107); Creatinine, Serum 1.83 mg/dL (0.70-1.30); EST Glomerular Filtration Rate 38 mL/min (>60); Est Glom Filt Rate - Afr Amer 46 mL/min (>60); Glucose 172 mg/dL (74-106); Phosphorus 2.9 mg/dL (2.5-4.9); Sodium Level 137 mmol/L (136-145)
== END ==
PROVIDERS: Internal Medicine Nephrology; Family Provider Family Medicine Geriatric Medicine; PCP Family Medicine Geriatric Medicine; Referring Provider Internal Medicine Gastroenterology; Visit Provider Internal Medicine Gastroenterology
DX: K74.60 Unspecified cirrhosis of liver (principal); R18.8 Other ascites; N17.9 Acute kidney failure, unspecified
CPT/HCPCS: 36415; 49083; 80069

== ENCOUNTER → 2019-03-26 10:12 | Outpatient (CLI) | payer MEDICARE, OTHER, SELFPAY ==
[2019-01-29 08:15] VITALS: BMI 42.9
--- NOTE | 2019-03-26 10:14 | US_ITS ---
PROCEDURE: Ultrasound guided paracentesis. DATE OF EXAMINATION: March 26, 2019. INDICATION: Male, 78 years old. Ascites. PHYSICIAN: Felipe Nguyen M.D. TECHNIQUE: The risks, benefits, and alternatives to the procedure were explained to the patient. The specific risks of bleeding, infection, and damage to bowel were detailed and accepted. Witnessed informed consent was obtained. The abdomen was ultrasonographically surveyed. An appropriate pocket of fluid was identified at the right lower quadrant. The skin were cleaned and prepped in the usual sterile fashion. Using ultrasound guidance, the peritoneal cavity was accessed with a 5-Palestinian paracentesis needle/catheter system. The trocar was removed. A total of 4900 ml of justino-colored fluid were removed from the peritoneal cavity. The catheter was removed and a sterile dressing was applied. The procedure was well tolerated. US/Paracentesis with US IMPRESSION: Ultrasound guided paracentesis. Electronically Signed: Felipe Nguyen, at 12:34 EDT , Service support ,
[2019-03-26 11:25] VITALS: BP 116/60; BP 124/57; BP 127/61; PULSE 70; PULSE 74; RESP 16; O2SAT 98; O2SAT 99
== END ==
PROVIDERS: Family Provider Family Medicine Geriatric Medicine; PCP Family Medicine Geriatric Medicine; Referring Provider Internal Medicine Gastroenterology; Visit Provider Internal Medicine Gastroenterology
DX: K74.60 Unspecified cirrhosis of liver (principal); R18.8 Other ascites
CPT/HCPCS: 49083

== ENCOUNTER → 2019-03-30 07:38 | Outpatient (CLI) | payer MEDICARE, OTHER, SELFPAY ==
[2019-01-29 08:15] VITALS: BMI 42.9
[2019-03-30 08:26] LABS: International Normalized Ratio 1.4; Prothrombin Time (Protime)PT. 17.4 SECONDS (11.7-14.9)
[2019-03-30 08:27] LABS: Partial Thromboplast Time 36.8 Seconds (24.1-36.2)
--- NOTE | 2019-03-30 09:00 | US_ITS ---
PROCEDURE: Ultrasound guided paracentesis. DATE OF EXAMINATION: March 30, 2019.. INDICATION: Male, 78 years old. Ascites. PHYSICIAN: Felipe Nguyen M.D. TECHNIQUE: The risks, benefits, and alternatives to the procedure were explained to the patient. The specific risks of bleeding, infection, and damage to bowel were detailed and accepted. Witnessed informed consent was obtained. The abdomen was ultrasonographically surveyed. An appropriate pocket of fluid was identified at the right lower quadrant. The skin were cleaned and prepped in the usual sterile fashion. Using ultrasound guidance, the peritoneal cavity was accessed with a 5-Spanish paracentesis needle/catheter system. The trocar was removed. A total of 4000 ml of justino-colored fluid were removed from the peritoneal cavity. The catheter was removed and a sterile dressing was applied. The procedure was well tolerated. US/Paracentesis with US IMPRESSION: Ultrasound guided paracentesis. Electronically Signed: Felipe Nguyen, at 10:13 EDT , Service support ,
[2019-03-30 09:36] VITALS: BP 103/49; BP 107/52; BP 112/56; BP 116/64; BP 117/59; BP 119/53; PULSE 73; PULSE 74; PULSE 75; RESP 18; RESP 20; O2SAT 100; O2SAT 95; O2SAT 97; O2SAT 98; O2SAT 99
--- NOTE | 2019-03-30 09:43 | NURSING ---
[id number] spoke with Kristie in infusion center- updated on <5L off via paracentesis therefore pt will not need infusion per order spoke with pedro pablo in pharmacy- updated as well, no need for infusion per order
== END ==
PROVIDERS: Family Provider Family Medicine Geriatric Medicine; PCP Family Medicine Geriatric Medicine; Referring Provider Internal Medicine Gastroenterology; Visit Provider Internal Medicine Gastroenterology
DX: K74.60 Unspecified cirrhosis of liver (principal); R18.8 Other ascites
CPT/HCPCS: 36415; 49083; 85610; 85730; A4216

== ENCOUNTER → 2019-04-05 08:14 | Outpatient (CLI) | payer MEDICARE, OTHER, SELFPAY ==
[2019-01-29 08:15] VITALS: BMI 42.9
--- NOTE | 2019-04-05 08:27 | US_ITS ---
PROCEDURE: Ultrasound guided paracentesis. DATE OF EXAMINATION: April 05, 2019. INDICATION: Male, 78 years old. Ascites. PHYSICIAN: Felipe Nguyen M.D. TECHNIQUE: The risks, benefits, and alternatives to the procedure were explained to the patient. The specific risks of bleeding, infection, and damage to bowel were detailed and accepted. Witnessed informed consent was obtained. The abdomen was ultrasonographically surveyed. An appropriate pocket of fluid was identified at the right lower quadrant. The skin were cleaned and prepped in the usual sterile fashion. Using ultrasound guidance, the peritoneal cavity was accessed with a 5-Lao paracentesis needle/catheter system. The trocar was removed. A total of 4250 ml of justino-colored fluid were removed from the peritoneal cavity. The catheter was removed and a sterile dressing was applied. The procedure was well tolerated. US/Paracentesis with US IMPRESSION: Ultrasound guided paracentesis. Electronically Signed: Felipe Nguyen, at 10:15 EDT , Service support ,
[2019-04-05 09:33] VITALS: BP 110/55; BP 110/58; BP 117/54; PULSE 68; PULSE 70; RESP 16; O2SAT 97; O2SAT 98; O2SAT 99
[2019-04-05 09:56] LABS: Albumin, Serum 1.7 g/dL (3.2-5.0); BUN 40 mg/dL (7-18); BUN/Creat Ratio 20.2 RATIO (10-20); Chloride 105 mmol/L (98-107); Creatinine, Serum 1.98 mg/dL (0.70-1.30); EST Glomerular Filtration Rate 35 mL/min (>60); Est Glom Filt Rate - Afr Amer 42 mL/min (>60); Glucose 211 mg/dL (74-106); Phosphorus 3.6 mg/dL (2.5-4.9); Potassium 4.6 mmol/L (3.5-5.1); Sodium Level 138 mmol/L (136-145)
== END ==
PROVIDERS: Internal Medicine Nephrology; Family Provider Family Medicine Geriatric Medicine; PCP Family Medicine Geriatric Medicine; Referring Provider Internal Medicine Gastroenterology; Visit Provider Internal Medicine Gastroenterology
DX: N17.9 Acute kidney failure, unspecified (principal)
CPT/HCPCS: 36415; 49083; 80069

== ENCOUNTER → 2019-04-11 08:17 | Outpatient (CLI) | payer MEDICARE, OTHER, SELFPAY ==
[2019-01-29 08:15] VITALS: BMI 42.9
--- NOTE | 2019-04-11 08:19 | US_ITS ---
PROCEDURE: Ultrasound guided paracentesis. DATE OF EXAMINATION: April 11, 2019. INDICATION: Male, 78 years old. Ascites. PHYSICIAN: Felipe Nguyen M.D. TECHNIQUE: The risks, benefits, and alternatives to the procedure were explained to the patient. The specific risks of bleeding, infection, and damage to bowel were detailed and accepted. Witnessed informed consent was obtained. The abdomen was ultrasonographically surveyed. An appropriate pocket of fluid was identified at the right lower quadrant. The skin were cleaned and prepped in the usual sterile fashion. Using ultrasound guidance, the peritoneal cavity was accessed with a 5-Yoruba paracentesis needle/catheter system. The trocar was removed. A total of 2100 ml of justino-colored fluid were removed from the peritoneal cavity. The catheter was removed and a sterile dressing was applied. The procedure was well tolerated. US/Paracentesis with US IMPRESSION: Ultrasound guided paracentesis. Electronically Signed: Felipe Nguyen, at 9:46 EDT , Service support ,
[2019-04-11 08:42] VITALS: BP 106/56; BP 96/50; PULSE 64; PULSE 68; RESP 18; O2SAT 97; O2SAT 98
== END ==
PROVIDERS: Family Provider Family Medicine Geriatric Medicine; PCP Family Medicine Geriatric Medicine; Referring Provider Internal Medicine Gastroenterology; Visit Provider Internal Medicine Gastroenterology
DX: K74.60 Unspecified cirrhosis of liver (principal); R18.8 Other ascites
CPT/HCPCS: 49083

== ENCOUNTER → 2019-04-17 10:36 | Outpatient (CLI) | payer MEDICARE, OTHER, SELFPAY ==
[2019-01-29 08:15] VITALS: BMI 42.9
[2019-04-17 12:46] LABS: Hematocrit 35.6 % (40-54); Hemoglobin 11.5 g/dL (13.0-16.5); Mean Corp Hgb Conc 32.3 g/dL (32-36); Mean Corpuscular Hgb 31.4 pg (27.0-32.0); Mean Corpuscular Volume 97.3 fL (80-94); Mean Platelet Vol. 11.2 fl (6.2-12.0); Platelet Count 88 K/mm3 (150-450); RBC Distribution Width CV 16.4 % (11.6-14.6); RBC Distribution Width SD 58.4 fl (35.1-43.9); Red Blood Count 3.66 M/mm3 (4.6-6.2); White Blood Count 5.9 K/mm3 (4.4-11.0)
[2019-04-17 13:04] LABS: Albumin, Serum 1.7 g/dL (3.2-5.0); BUN 36 mg/dL (7-18); BUN/Creat Ratio 19.5 RATIO (10-20); Calcium,Total 8.3 mg/dL (8.5-10.1); Chloride 110 mmol/L (98-107); Creatinine, Serum 1.85 mg/dL (0.70-1.30); EST Glomerular Filtration Rate 38 mL/min (>60); Est Glom Filt Rate - Afr Amer 46 mL/min (>60); Glucose 136 mg/dL (74-106); Phosphorus 3.3 mg/dL (2.5-4.9); Potassium 4.4 mmol/L (3.5-5.1); Sodium Level 141 mmol/L (136-145)
--- NOTE | 2019-04-17 14:16 | US_ITS ---
PROCEDURE: ULTRASOUND GUIDED PARACENTESIS CLINICAL HISTORY: Male, 78 years old. Elevated LFTs, ascites CONSENT: Informed consent obtained Time-Out Called: Yes. Consent form signed: Yes. PT-PTT Levels Checked: Yes. SEDATION: Local with 2% Xylocaine TECHNIQUE: Ultrasound guided FINDINGS: FLUID PRE-PROCEDURE There is posterior enhancement. The findings appear anechoic. There is no loculation. FLUID POST-PROCEDURE Amount of fluid drained: 3150 ml. Patient tolerated the procedure well with no immediate complications and was discharged to home in stable condition US/Paracentesis with US IMPRESSION: Successful sonographically guided paracentesis with drainage of 3150 mL of justino-colored serous fluid Electronically Signed: Madi Shah MD at 15:29 EDT , Service support ,
[2019-04-17 15:25] VITALS: BP 110/63; BP 110/89; BP 122/57; PULSE 63; PULSE 64; PULSE 67; RESP 16; RESP 18; O2SAT 99
== END ==
PROVIDERS: Internal Medicine Nephrology; Family Provider Family Medicine Geriatric Medicine; PCP Family Medicine Geriatric Medicine; Referring Provider Internal Medicine Gastroenterology; Visit Provider Internal Medicine Gastroenterology
DX: K74.60 Unspecified cirrhosis of liver (principal); R18.8 Other ascites; N17.9 Acute kidney failure, unspecified; E55.9 Vitamin D deficiency, unspecified
CPT/HCPCS: 36415; 49083; 80069; 82306; 85027

== ENCOUNTER → 2019-04-24 12:23 | Outpatient (CLI) | payer MEDICARE, OTHER, SELFPAY ==
[2019-01-29 08:15] VITALS: BMI 42.9
--- NOTE | 2019-04-24 12:25 | US_ITS ---
PROCEDURE: Ultrasound guided paracentesis. DATE OF EXAMINATION: April 24, 2019. INDICATION: Male, 78 years old. Ascites. PHYSICIAN: Felipe Nguyen M.D. TECHNIQUE: The risks, benefits, and alternatives to the procedure were explained to the patient. The specific risks of bleeding, infection, and damage to bowel were detailed and accepted. Witnessed informed consent was obtained. The abdomen was ultrasonographically surveyed. An appropriate pocket of fluid was identified at the right lower quadrant. The skin were cleaned and prepped in the usual sterile fashion. Using ultrasound guidance, the peritoneal cavity was accessed with a 5-Kyrgyz paracentesis needle/catheter system. The trocar was removed. A total of 4000 ml of justino-colored fluid were removed from the peritoneal cavity. The catheter was removed and a sterile dressing was applied. The procedure was well tolerated. US/Paracentesis with US IMPRESSION: Ultrasound guided paracentesis. Electronically Signed: Felipe Nguyen, at 13:42 EDT , Service support ,
[2019-04-24 13:32] VITALS: BP 114/33; BP 120/75; PULSE 86; PULSE 95; RESP 18; O2SAT 98; O2SAT 99
[2019-04-24 14:08] LABS: International Normalized Ratio 1.4
[2019-04-24 14:25] LABS: Partial Thromboplast Time 38.5 Seconds (24.1-36.2)
== END ==
PROVIDERS: Family Provider Family Medicine Geriatric Medicine; PCP Family Medicine Geriatric Medicine; Referring Provider Internal Medicine Gastroenterology; Visit Provider Internal Medicine Gastroenterology
DX: K74.60 Unspecified cirrhosis of liver (principal); R18.8 Other ascites
CPT/HCPCS: 36415; 49083; 85610; 85730

== ENCOUNTER → 2019-05-01 10:10 | Outpatient (CLI) | payer MEDICARE, OTHER, SELFPAY ==
[2019-01-29 08:15] VITALS: BMI 42.9
--- NOTE | 2019-05-01 10:14 | US_ITS ---
PROCEDURE: Ultrasound guided paracentesis. DATE OF EXAMINATION: May 01, 2019. INDICATION: Male, 78 years old. Ascites. PHYSICIAN: Felipe Nguyen M.D. TECHNIQUE: The risks, benefits, and alternatives to the procedure were explained to the patient. The specific risks of bleeding, infection, and damage to bowel were detailed and accepted. Witnessed informed consent was obtained. The abdomen was ultrasonographically surveyed. An appropriate pocket of fluid was identified at the left lower quadrant. The skin were cleaned and prepped in the usual sterile fashion. Using ultrasound guidance, the peritoneal cavity was accessed with a 5-Mongolian paracentesis needle/catheter system. The trocar was removed. A total of 4150 ml of justino-colored fluid were removed from the peritoneal cavity. The catheter was removed and a sterile dressing was applied. The procedure was well tolerated. US/Paracentesis with US IMPRESSION: Ultrasound guided paracentesis. Electronically Signed: Felipe Nguyen, at 11:20 EDT , Service support ,
[2019-05-01 11:21] VITALS: BP 104/54; BP 105/57; PULSE 66; PULSE 67; RESP 18; O2SAT 98
== END ==
PROVIDERS: Family Provider Family Medicine Geriatric Medicine; PCP Family Medicine Geriatric Medicine; Referring Provider Internal Medicine Gastroenterology; Visit Provider Internal Medicine Gastroenterology
DX: R18.8 Other ascites (principal)
CPT/HCPCS: 49083

== ENCOUNTER → 2019-05-08 08:25 | Outpatient (CLI) | payer MEDICARE, OTHER, SELFPAY ==
[2019-01-29 08:15] VITALS: BMI 42.9
--- NOTE | 2019-05-08 08:27 | US_ITS ---
PROCEDURE: Ultrasound guided paracentesis. DATE OF EXAMINATION: May 08, 2019. INDICATION: Male, 78 years old. Ascites. PHYSICIAN: Felipe Nguyen M.D. TECHNIQUE: The risks, benefits, and alternatives to the procedure were explained to the patient. The specific risks of bleeding, infection, and damage to bowel were detailed and accepted. Witnessed informed consent was obtained. The abdomen was ultrasonographically surveyed. An appropriate pocket of fluid was identified at the right lower quadrant. The skin were cleaned and prepped in the usual sterile fashion. Using ultrasound guidance, the peritoneal cavity was accessed with a 5-Mongolian paracentesis needle/catheter system. The trocar was removed. A total of 3400 ml of justino-colored fluid were removed from the peritoneal cavity. The catheter was removed and a sterile dressing was applied. The procedure was well tolerated. US/Paracentesis with US IMPRESSION: Ultrasound guided paracentesis. Electronically Signed: Felipe Nguyen, at 9:40 EDT , Service support ,
[2019-05-08 09:31] VITALS: BP 102/48; BP 105/55; BP 108/52; PULSE 67; PULSE 71; RESP 16; O2SAT 98
== END ==
PROVIDERS: Family Provider Family Medicine Geriatric Medicine; PCP Family Medicine Geriatric Medicine; Referring Provider Internal Medicine Gastroenterology; Visit Provider Internal Medicine Gastroenterology
DX: K74.60 Unspecified cirrhosis of liver (principal); R18.8 Other ascites
CPT/HCPCS: 49083

== ENCOUNTER → 2019-05-15 10:13 | Outpatient (CLI) | payer MEDICARE, OTHER, SELFPAY ==
[2019-01-29 08:15] VITALS: BMI 42.9
--- NOTE | 2019-05-15 10:14 | US_ITS ---
PROCEDURE: ULTRASOUND GUIDED PARACENTESIS. DATE OF EXAMINATION: 05/15/2019. INDICATION: Ascites. PHYSICIAN: Dr. Santos Santizo M.D. The risks, benefits, and alternatives to the procedure were explained to the patient. The specific risks of bleeding, infection, and damage to bowel were detailed and accepted. Witnessed informed consent was obtained. The abdomen was ultrasonographically surveyed. An appropriate pocket of fluid was identified at the right lower quadrant. The skin were cleaned and prepped in the usual sterile fashion. Using ultrasound guidance, the peritoneal cavity was accessed with a 5-Bolivian paracentesis needle/catheter system. The trocar was removed. A total of 2600 ml of yellowish ascites fluid were removed from the peritoneal cavity. The catheter was removed and a sterile dressing was applied. The procedure was well tolerated. US/Paracentesis with US IMPRESSION: Successful sonographic guided paracentesis with no complication. Electronically Signed: Santos Santizo MD at 13:06 EDT Tel [phone], Service support ,
[2019-05-15 11:09] VITALS: BP 92/52; BP 98/53; PULSE 63; PULSE 64; RESP 16; O2SAT 97; O2SAT 99
== END ==
PROVIDERS: Family Provider Family Medicine Geriatric Medicine; PCP Family Medicine Geriatric Medicine; Referring Provider Internal Medicine Gastroenterology; Visit Provider Internal Medicine Gastroenterology
DX: R18.8 Other ascites (principal)
CPT/HCPCS: 49083

== ENCOUNTER → 2019-05-25 10:13 | Outpatient (CLI) | payer MEDICARE, OTHER, SELFPAY ==
[2019-01-29 08:15] VITALS: BMI 42.9
--- NOTE | 2019-05-25 10:16 | US_ITS ---
PROCEDURE: Ultrasound guided paracentesis. DATE OF EXAMINATION: May 25, 2019. INDICATION: Male, 78 years old. Ascites. PHYSICIAN: Felipe Nguyen M.D. TECHNIQUE: The risks, benefits, and alternatives to the procedure were explained to the patient. The specific risks of bleeding, infection, and damage to bowel were detailed and accepted. Witnessed informed consent was obtained. The abdomen was ultrasonographically surveyed. An appropriate pocket of fluid was identified at the right lower quadrant. The skin were cleaned and prepped in the usual sterile fashion. Using ultrasound guidance, the peritoneal cavity was accessed with a 5-Colombian paracentesis needle/catheter system. The trocar was removed. A total of 3350 ml of justino-colored fluid were removed from the peritoneal cavity. The catheter was removed and a sterile dressing was applied. The procedure was well tolerated. US/Paracentesis with US IMPRESSION: Ultrasound guided paracentesis. Electronically Signed: Felipe Nguyen, at 13:05 EDT , Service support ,
[2019-05-25 10:35] VITALS: BP 103/60; BP 107/48; PULSE 61; PULSE 62; RESP 18; O2SAT 100; O2SAT 99
[2019-05-25 11:47] LABS: International Normalized Ratio 1.5
[2019-05-25 11:48] LABS: Partial Thromboplast Time 39.3 Seconds (24.1-36.2)
== END ==
PROVIDERS: Family Provider Family Medicine Geriatric Medicine; PCP Family Medicine Geriatric Medicine; Referring Provider Internal Medicine Gastroenterology; Visit Provider Internal Medicine Gastroenterology
DX: K74.60 Unspecified cirrhosis of liver (principal); R18.8 Other ascites
CPT/HCPCS: 36415; 49083; 85610; 85730

== ENCOUNTER → 2019-05-29 09:03 | Outpatient (CLI) | payer MEDICARE, OTHER, SELFPAY ==
[2019-01-29 08:15] VITALS: BMI 42.9
[2019-05-29 12:15] LABS: Absolute Neutrophil Count 4.2 X10^3/uL (2.0-7.7); Basophil# 0.02 X10^3/uL; Basophil% 0.4 % (0-1); Eosinophil# 0.08 X10^3/uL; Eosinophils% 1.4 % (0-5); Hematocrit 33.6 % (40-54); Hemoglobin 11.1 g/dL (13.0-16.5); Lymphocyte % 15.8 % (19-41); Mean Corpuscular Hgb 32.5 pg (27.0-32.0); Mean Corpuscular Volume 98.2 fL (80-94); Mean Platelet Vol. 10.3 fl (6.2-12.0); Monocyte# 0.53 X10^3/uL; Monocyte% 9.3 % (0-10); NRBC Flagged by Analyzer 0 % (0-5); Neutrophil # 4.16 X10^3/uL (2.7-7.7); Neutrophil % 72.7 % (47-70); Platelet Count 81 K/mm3 (150-450); RBC Distribution Width CV 17.3 % (11.6-14.6); RBC Distribution Width SD 62.4 fl (35.1-43.9); Red Blood Count 3.42 M/mm3 (4.6-6.2); White Blood Count 5.7 K/mm3 (4.4-11.0)
[2019-05-29 12:38] LABS: ALB/GLOB Ratio 0.4 RATIO (0.9-2.4); AST(SGOT) 45 U/L (15-37); Alanine Aminotransfer ALT/SGPT 45 U/L (16-61); Albumin, Serum 1.6 g/dL (3.2-5.0); Alkaline Phosphatase 212 U/L (45-117); Anion Gap 7 (5-15); BUN 67 mg/dL (7-18); Chloride 115 mmol/L (98-107); Creatinine, Serum 3.19 mg/dL (0.70-1.30); EST Glomerular Filtration Rate 20 mL/min (>60); Est Glom Filt Rate - Afr Amer 24 mL/min (>60); Globulin 4.4 g/dL (2.2-4.2); Glucose 132 mg/dL (74-106); Potassium 4.7 mmol/L (3.5-5.1); Sodium Level 142 mmol/L (136-145)
[2019-05-29 12:39] LABS: Vitamin D,25 Hydroxy 29.3 ng/mL (29.95-100.01)
== END ==
PROVIDERS: Family Provider Family Medicine Geriatric Medicine; PCP Family Medicine Geriatric Medicine; Visit Provider Family Medicine Geriatric Medicine
DX: E11.9 Type 2 diabetes mellitus without complications (principal); E55.9 Vitamin D deficiency, unspecified; F52.8 Other sexual dysfunction not due to a substance or known physiological condition; I10 Essential (primary) hypertension; M10.9 Gout, unspecified
CPT/HCPCS: 36415; 80053; 82306; 84403; 84443; 84550; 85025

== ENCOUNTER → 2019-06-01 13:21 | Outpatient (CLI) | payer MEDICARE, OTHER, SELFPAY ==
[2019-01-29 08:15] VITALS: BMI 42.9
--- NOTE | 2019-06-01 13:23 | US_ITS ---
PROCEDURE: Ultrasound guided paracentesis. DATE OF EXAMINATION: June 01, 2019. INDICATION: Male, 78 years old. Ascites. PHYSICIAN: Felipe Nguyen M.D. TECHNIQUE: The risks, benefits, and alternatives to the procedure were explained to the patient. The specific risks of bleeding, infection, and damage to bowel were detailed and accepted. Witnessed informed consent was obtained. The abdomen was ultrasonographically surveyed. An appropriate pocket of fluid was identified at the right lower quadrant. The skin were cleaned and prepped in the usual sterile fashion. Using ultrasound guidance, the peritoneal cavity was accessed with a 5-Mongolian paracentesis needle/catheter system. The trocar was removed. A total of 3600 ml of justino-colored fluid were removed from the peritoneal cavity. The catheter was removed and a sterile dressing was applied. The procedure was well tolerated. US/Paracentesis with US IMPRESSION: Ultrasound guided paracentesis. Electronically Signed: Felipe Nguyen, at 8:19 EDT , Service support ,
[2019-06-01 13:59] VITALS: BP 108/70; BP 127/53; BP 128/50; PULSE 60; PULSE 65; PULSE 66; RESP 16; RESP 18; O2SAT 97; O2SAT 98; O2SAT 99
== END ==
PROVIDERS: Family Provider Family Medicine Geriatric Medicine; PCP Family Medicine Geriatric Medicine; Referring Provider Internal Medicine Gastroenterology; Visit Provider Internal Medicine Gastroenterology
DX: R18.8 Other ascites (principal)
CPT/HCPCS: 49083

== ENCOUNTER → 2019-06-08 13:13 | Outpatient (CLI) | payer MEDICARE, OTHER, SELFPAY ==
[2019-01-29 08:15] VITALS: BMI 42.9
--- NOTE | 2019-06-08 13:16 | US_ITS ---
PROCEDURE: Ultrasound guided paracentesis. DATE OF EXAMINATION: June 08, 2019. INDICATION: Male, 78 years old. Ascites. PHYSICIAN: Felipe Nguyen M.D. TECHNIQUE: The risks, benefits, and alternatives to the procedure were explained to the patient. The specific risks of bleeding, infection, and damage to bowel were detailed and accepted. Witnessed informed consent was obtained. The abdomen was ultrasonographically surveyed. An appropriate pocket of fluid was identified at the right lower quadrant. The skin were cleaned and prepped in the usual sterile fashion. Using ultrasound guidance, the peritoneal cavity was accessed with a 5-Moldovan paracentesis needle/catheter system. The trocar was removed. A total of 3100 ml of justino-colored fluid were removed from the peritoneal cavity. The catheter was removed and a sterile dressing was applied. The procedure was well tolerated. US/Paracentesis with US IMPRESSION: Ultrasound guided paracentesis. Electronically Signed: Felipe Nguyen, at 14:40 EDT , Service support ,
[2019-06-08 13:40] VITALS: BP 100/49; BP 100/50; BP 101/44; BP 90/48; BP 96/53; BP 97/48; BP 98/47; BP 99/58; PULSE 62; PULSE 65; PULSE 66; PULSE 67; RESP 16; RESP 18; O2SAT 97; O2SAT 98
== END ==
PROVIDERS: Family Provider Family Medicine Geriatric Medicine; PCP Family Medicine Geriatric Medicine; Referring Provider Internal Medicine Gastroenterology; Visit Provider Internal Medicine Gastroenterology
DX: K74.60 Unspecified cirrhosis of liver (principal); R18.8 Other ascites
CPT/HCPCS: 49083

== ENCOUNTER → 2019-06-13 15:14 | Outpatient (CLI) | payer MEDICARE, OTHER, SELFPAY ==
[2019-01-29 08:15] VITALS: BMI 42.9
[2019-06-13 17:32] LABS: Albumin, Serum 1.6 g/dL (3.2-5.0); BUN 49 mg/dL (7-18); BUN/Creat Ratio 19.5 RATIO (10-20); Calcium,Total 7.7 mg/dL (8.5-10.1); Chloride 113 mmol/L (98-107); Creatinine, Serum 2.51 mg/dL (0.70-1.30); EST Glomerular Filtration Rate 26 mL/min (>60); Est Glom Filt Rate - Afr Amer 32 mL/min (>60); Glucose 127 mg/dL (74-106); Phosphorus 3.8 mg/dL (2.5-4.9); Sodium Level 140 mmol/L (136-145)
== END ==
PROVIDERS: Family Provider Family Medicine Geriatric Medicine; PCP Family Medicine Geriatric Medicine; Visit Provider Internal Medicine Nephrology
DX: N17.9 Acute kidney failure, unspecified (principal)
CPT/HCPCS: 36415; 80069

== ENCOUNTER → 2019-06-15 13:10 | Outpatient (CLI) | payer MEDICARE, OTHER, SELFPAY ==
[2019-01-29 08:15] VITALS: BMI 42.9
--- NOTE | 2019-06-15 13:13 | US_ITS ---
PROCEDURE: Ultrasound guided paracentesis. DATE OF EXAMINATION: June 15, 2019. INDICATION: Male, 78 years old. Ascites. PHYSICIAN: Felipe Nguyen M.D. TECHNIQUE: The risks, benefits, and alternatives to the procedure were explained to the patient. The specific risks of bleeding, infection, and damage to bowel were detailed and accepted. Witnessed informed consent was obtained. The abdomen was ultrasonographically surveyed. An appropriate pocket of fluid was identified at the right lower quadrant. The skin were cleaned and prepped in the usual sterile fashion. Using ultrasound guidance, the peritoneal cavity was accessed with a 5-Greenlandic paracentesis needle/catheter system. The trocar was removed. A total of 3650 ml of justino-colored fluid were removed from the peritoneal cavity. The catheter was removed and a sterile dressing was applied. The procedure was well tolerated. US/Paracentesis with US IMPRESSION: Ultrasound guided paracentesis. Electronically Signed: Felipe Nguyen, at 15:00 EDT , Service support ,
[2019-06-15 13:28] VITALS: BP 100/49; BP 109/50; BP 98/50; PULSE 59; PULSE 64; PULSE 65; RESP 16; RESP 18; O2SAT 100; O2SAT 98; O2SAT 99
== END ==
PROVIDERS: Family Provider Family Medicine Geriatric Medicine; PCP Family Medicine Geriatric Medicine; Referring Provider Internal Medicine Gastroenterology; Visit Provider Internal Medicine Gastroenterology
DX: K74.60 Unspecified cirrhosis of liver (principal); R18.8 Other ascites
CPT/HCPCS: 49083

== ENCOUNTER → 2019-06-20 14:35 | Outpatient (CLI) | payer MEDICARE, OTHER, SELFPAY ==
[2019-01-29 08:15] VITALS: BMI 42.9
[2019-06-20 15:48] LABS: Albumin, Serum 1.7 g/dL (3.2-5.0); BUN 52 mg/dL (7-18); BUN/Creat Ratio 21.5 RATIO (10-20); Calcium,Total 8.1 mg/dL (8.5-10.1); Chloride 115 mmol/L (98-107); Creatinine, Serum 2.42 mg/dL (0.70-1.30); EST Glomerular Filtration Rate 28 mL/min (>60); Est Glom Filt Rate - Afr Amer 33 mL/min (>60); Glucose 131 mg/dL (74-106); Potassium 5.3 mmol/L (3.5-5.1); Sodium Level 143 mmol/L (136-145)
== END ==
PROVIDERS: Family Provider Family Medicine Geriatric Medicine; PCP Family Medicine Geriatric Medicine; Visit Provider Internal Medicine Nephrology
DX: N17.9 Acute kidney failure, unspecified (principal)
CPT/HCPCS: 36415; 80069

== ENCOUNTER → 2019-06-21 08:21 | Outpatient (CLI) | payer MEDICARE, OTHER, SELFPAY ==
[2019-01-29 08:15] VITALS: BMI 42.9
--- NOTE | 2019-06-21 08:23 | US_ITS ---
PROCEDURE: Ultrasound guided paracentesis. DATE OF EXAMINATION: June 21, 2019.. INDICATION: Male, 78 years old. Ascites. PHYSICIAN: Felipe Nguyen M.D. TECHNIQUE: The risks, benefits, and alternatives to the procedure were explained to the patient. The specific risks of bleeding, infection, and damage to bowel were detailed and accepted. Witnessed informed consent was obtained. The abdomen was ultrasonographically surveyed. An appropriate pocket of fluid was identified at the right lower quadrant. The skin were cleaned and prepped in the usual sterile fashion. Using ultrasound guidance, the peritoneal cavity was accessed with a 5-Armenian paracentesis needle/catheter system. The trocar was removed. A total of 3250 ml of justino-colored fluid were removed from the peritoneal cavity. The catheter was removed and a sterile dressing was applied. The procedure was well tolerated. US/Paracentesis with US IMPRESSION: Ultrasound guided paracentesis. Electronically Signed: Felipe Nguyen, at 9:12 EDT , Service support ,
[2019-06-21 09:19] VITALS: BP 112/49; BP 117/59; PULSE 81; PULSE 84; RESP 16; O2SAT 98; O2SAT 99
== END ==
PROVIDERS: Family Provider Family Medicine Geriatric Medicine; PCP Family Medicine Geriatric Medicine; Referring Provider Internal Medicine Gastroenterology; Visit Provider Internal Medicine Gastroenterology
DX: K74.60 Unspecified cirrhosis of liver (principal); R18.8 Other ascites; N17.9 Acute kidney failure, unspecified
CPT/HCPCS: 49083

== ENCOUNTER → 2019-06-28 11:37 | Outpatient (CLI) | payer MEDICARE, OTHER, SELFPAY ==
[2019-01-29 08:15] VITALS: BMI 42.9
[2019-06-28 12:07] LABS: International Normalized Ratio 1.7; Prothrombin Time (Protime)PT. 19.4 SECONDS (11.7-14.9)
[2019-06-28 12:08] LABS: Partial Thromboplast Time 40.7 Seconds (24.1-36.2)
== END ==
PROVIDERS: Family Provider Family Medicine Geriatric Medicine; PCP Family Medicine Geriatric Medicine; Referring Provider Internal Medicine Gastroenterology; Visit Provider Internal Medicine Gastroenterology
DX: K74.60 Unspecified cirrhosis of liver (principal); R18.8 Other ascites
CPT/HCPCS: 36415; 85610; 85730; 86850; 86900; 86901

== ENCOUNTER → 2019-06-29 09:46 | Outpatient (CLI) | payer MEDICARE, OTHER, SELFPAY ==
[2019-01-29 08:15] VITALS: BMI 42.9
[2019-06-29] VITALS (8 sets, daily range): BP systolic 108–132; BP diastolic 52–64; PULSE 60–96; RESP 16–20; TEMP 36.7–37.2; O2SAT 94–99; BMI 36.0
--- NOTE | 2019-06-29 13:14 | US_ITS ---
PROCEDURE: Ultrasound guided paracentesis. DATE OF EXAMINATION: June 29, 2019. INDICATION: Male, 78 years old. Ascites. PHYSICIAN: Felipe Nguyen M.D. TECHNIQUE: The risks, benefits, and alternatives to the procedure were explained to the patient. The specific risks of bleeding, infection, and damage to bowel were detailed and accepted. Witnessed informed consent was obtained. The abdomen was ultrasonographically surveyed. An appropriate pocket of fluid was identified at the right lower quadrant. The skin were cleaned and prepped in the usual sterile fashion. Using ultrasound guidance, the peritoneal cavity was accessed with a 5-[place] Islander paracentesis needle/catheter system. The trocar was removed. A total of 3300 ml of justino-colored fluid were removed from the peritoneal cavity. The catheter was removed and a sterile dressing was applied. The procedure was well tolerated. US/Paracentesis with US IMPRESSION: Ultrasound guided paracentesis. Electronically Signed: Felipe Nguyen, at 14:43 EDT , Service support ,
== END ==
PROVIDERS: Family Provider Family Medicine Geriatric Medicine; PCP Family Medicine Geriatric Medicine; Visit Provider Radiology Diagnostic Radiology
DX: R18.8 Other ascites (principal)
CPT/HCPCS: 36430; 49083; 86850; 86900; 86901; P9017; A4216

== ENCOUNTER → 2019-07-06 11:35 | Outpatient (CLI) | payer MEDICARE, OTHER, SELFPAY ==
[2019-01-29 08:15] VITALS: BMI 42.9
[2019-06-29 10:09] VITALS: BMI 36.0
[2019-07-05 09:19] LABS: International Normalized Ratio 1.5; Prothrombin Time (Protime)PT. 17.9 SECONDS (11.7-14.9)
[2019-07-05 09:20] LABS: Partial Thromboplast Time 39.8 Seconds (24.1-36.2)
--- NOTE | 2019-07-06 12:16 | US_ITS ---
PROCEDURE: ULTRASOUND GUIDED PARACENTESIS CLINICAL HISTORY: Male, 78 years old. CONSENT: Consent performed by Dr. Victor Time-Out Called: Yes. Consent form signed: Yes. PT-PTT Levels Checked: Yes. SEDATION: No TECHNIQUE: With ultrasound guidance a needle was inserted into a large pocket of ascites in the right lower quadrant. FINDINGS: FLUID PRE-PROCEDURE 3450 cc of justino fluid was aspirated from the right lower quadrant. The patient tolerated the procedure well. The fluid was drawn out until it stopped. US/Paracentesis with US IMPRESSION: 3450 cc of ascites was aspirated during this paracentesis. Electronically Signed: Deejay Victor, at 16:47 EDT Tel , Service support ,
[2019-07-06 12:35] VITALS: BP 105/57; BP 107/50; BP 118/56; PULSE 81; PULSE 86; PULSE 88; RESP 16; RESP 18; O2SAT 97; O2SAT 98; O2SAT 99
[2019-07-06 12:57] LABS: Albumin, Serum 1.8 g/dL (3.2-5.0); BUN 49 mg/dL (7-18); BUN/Creat Ratio 19.9 RATIO (10-20); Calcium,Total 7.9 mg/dL (8.5-10.1); Chloride 113 mmol/L (98-107); Creatinine, Serum 2.46 mg/dL (0.70-1.30); EST Glomerular Filtration Rate 27 mL/min (>60); Est Glom Filt Rate - Afr Amer 33 mL/min (>60); Glucose 159 mg/dL (74-106); Phosphorus 3.4 mg/dL (2.5-4.9); Potassium 3.3 mmol/L (3.5-5.1); Sodium Level 141 mmol/L (136-145)
== END ==
PROVIDERS: Family Provider Family Medicine Geriatric Medicine; PCP Family Medicine Geriatric Medicine; Referring Provider Internal Medicine Gastroenterology; Visit Provider Internal Medicine Gastroenterology
DX: K74.60 Unspecified cirrhosis of liver (principal); R18.8 Other ascites; N17.9 Acute kidney failure, unspecified
CPT/HCPCS: 36415; 49083; 80069; 85610; 85730

== ENCOUNTER → 2019-07-12 08:18 | Outpatient (CLI) | payer MEDICARE, OTHER, SELFPAY ==
[2019-01-29 08:15] VITALS: BMI 42.9
[2019-06-29 10:09] VITALS: BMI 36.0
[2019-07-11 08:57] LABS: International Normalized Ratio 1.5; Partial Thromboplast Time 43.6 Seconds (24.1-36.2); Prothrombin Time (Protime)PT. 17.9 SECONDS (11.7-14.9)
--- NOTE | 2019-07-12 08:19 | US_ITS ---
PROCEDURE: Ultrasound guided paracentesis. DATE OF EXAMINATION: July 12, 2019. INDICATION: Male, 78 years old. Ascites. PHYSICIAN: Felipe Nguyen M.D. TECHNIQUE: The risks, benefits, and alternatives to the procedure were explained to the patient. The specific risks of bleeding, infection, and damage to bowel were detailed and accepted. Witnessed informed consent was obtained. The abdomen was ultrasonographically surveyed. An appropriate pocket of fluid was identified at the right lower quadrant. The skin were cleaned and prepped in the usual sterile fashion. Using ultrasound guidance, the peritoneal cavity was accessed with a 5-Faroese paracentesis needle/catheter system. The trocar was removed. A total of 4900 ml of justino-colored fluid were removed from the peritoneal cavity. The catheter was removed and a sterile dressing was applied. The procedure was well tolerated. US/Paracentesis with US IMPRESSION: Ultrasound guided paracentesis. Electronically Signed: Felipe Nguyen, at 9:24 EDT , Service support ,
[2019-07-12 08:44] VITALS: BP 115/52; BP 121/55; PULSE 89; RESP 16; O2SAT 97; O2SAT 98
== END ==
PROVIDERS: Family Provider Family Medicine Geriatric Medicine; PCP Family Medicine Geriatric Medicine; Referring Provider Internal Medicine Gastroenterology; Visit Provider Internal Medicine Gastroenterology
DX: K74.60 Unspecified cirrhosis of liver (principal); R18.8 Other ascites
CPT/HCPCS: 36415; 49083; 85610; 85730

== ENCOUNTER → 2019-07-19 08:21 | Outpatient (CLI) | payer MEDICARE, OTHER, SELFPAY ==
[2019-01-29 08:15] VITALS: BMI 42.9
[2019-06-29 10:09] VITALS: BMI 36.0
[2019-07-18 09:27] LABS: International Normalized Ratio 1.5; Prothrombin Time (Protime)PT. 18.3 SECONDS (11.7-14.9)
[2019-07-18 09:28] LABS: Partial Thromboplast Time 39.4 Seconds (24.1-36.2)
--- NOTE | 2019-07-19 08:22 | US_ITS ---
PROCEDURE: Ultrasound guided paracentesis. DATE OF EXAMINATION: July 19, 2019. INDICATION: Male, 78 years old. Ascites. PHYSICIAN: Felipe Nguyen M.D. TECHNIQUE: The risks, benefits, and alternatives to the procedure were explained to the patient. The specific risks of bleeding, infection, and damage to bowel were detailed and accepted. Witnessed informed consent was obtained. The abdomen was ultrasonographically surveyed. An appropriate pocket of fluid was identified at the right/left lower quadrant. The skin were cleaned and prepped in the usual sterile fashion. Using ultrasound guidance, the peritoneal cavity was accessed with a 5-Malian paracentesis needle/catheter system. The trocar was removed. A total of 3900 ml of justino-colored fluid were removed from the peritoneal cavity. The catheter was removed and a sterile dressing was applied. The procedure was well tolerated. US/Paracentesis with US IMPRESSION: Ultrasound guided paracentesis. Electronically Signed: Felipe Nguyen, at 9:18 EDT , Service support ,
[2019-07-19 08:33] VITALS: BP 104/50; BP 108/47; BP 116/53; PULSE 94; RESP 16; O2SAT 97; O2SAT 98; O2SAT 99
--- NOTE | 2019-07-19 09:05 | NURSING ---
Raymon,RN talked with Dr. Nguyen and confirmed patient is able to wait 30 days for lab work since getting labs done yesterday. Pt and family aware.
== END ==
PROVIDERS: Family Provider Family Medicine Geriatric Medicine; PCP Family Medicine Geriatric Medicine; Referring Provider Internal Medicine Gastroenterology; Visit Provider Internal Medicine Gastroenterology
DX: K74.60 Unspecified cirrhosis of liver (principal); R18.8 Other ascites
CPT/HCPCS: 36415; 49083; 85610; 85730

== ENCOUNTER → 2019-07-23 07:22 | Outpatient (CLI) | payer MEDICARE, OTHER, SELFPAY ==
[2019-01-29 08:15] VITALS: BMI 42.9
[2019-06-29 10:09] VITALS: BMI 36.0
[2019-07-23 07:36] LABS: Hematocrit 34.1 % (40-54); Hemoglobin 11.2 g/dL (13.0-16.5); Mean Corp Hgb Conc 32.8 g/dL (32-36); Mean Corpuscular Hgb 32.6 pg (27.0-32.0); Mean Corpuscular Volume 99.1 fL (80-94); Mean Platelet Vol. 11.1 fl (6.2-12.0); Platelet Count 69 K/mm3 (150-450); RBC Distribution Width CV 16.1 % (11.6-14.6); RBC Distribution Width SD 58.9 fl (35.1-43.9); Red Blood Count 3.44 M/mm3 (4.6-6.2); White Blood Count 5.8 K/mm3 (4.4-11.0)
[2019-07-23 08:01] LABS: Albumin, Serum 1.8 g/dL (3.2-5.0); BUN 62 mg/dL (7-18); BUN/Creat Ratio 20.4 RATIO (10-20); Calcium,Total 8.3 mg/dL (8.5-10.1); Chloride 107 mmol/L (98-107); Creatinine, Serum 3.04 mg/dL (0.70-1.30); EST Glomerular Filtration Rate 21 mL/min (>60); Est Glom Filt Rate - Afr Amer 26 mL/min (>60); Glucose 140 mg/dL (74-106); Phosphorus 3.5 mg/dL (2.5-4.9); Potassium 3.9 mmol/L (3.5-5.1); Sodium Level 136 mmol/L (136-145)
== END ==
LOC: LAB.FUTURE 07:25 → LAB 07:27
PROVIDERS: Family Provider Family Medicine Geriatric Medicine; PCP Family Medicine Geriatric Medicine; Referring Provider Internal Medicine Nephrology; Visit Provider Internal Medicine Nephrology
DX: N17.9 Acute kidney failure, unspecified (principal); K74.60 Unspecified cirrhosis of liver
CPT/HCPCS: 36415; 80069; 82140; 85027

== ENCOUNTER → 2019-07-26 08:11 | Outpatient (CLI) | payer MEDICARE, OTHER, SELFPAY ==
[2019-01-29 08:15] VITALS: BMI 42.9
[2019-06-29 10:09] VITALS: BMI 36.0
--- NOTE | 2019-07-26 08:14 | US_ITS ---
PROCEDURE: Ultrasound guided paracentesis. DATE OF EXAMINATION: July 26, 2019. INDICATION: Male, 78 years old. Ascites. PHYSICIAN: Felipe Nguyen M.D. TECHNIQUE: The risks, benefits, and alternatives to the procedure were explained to the patient. The specific risks of bleeding, infection, and damage to bowel were detailed and accepted. Witnessed informed consent was obtained. The abdomen was ultrasonographically surveyed. An appropriate pocket of fluid was identified at the right lower quadrant. The skin were cleaned and prepped in the usual sterile fashion. Using ultrasound guidance, the peritoneal cavity was accessed with a 5-Sami paracentesis needle/catheter system. The trocar was removed. A total of 3050 ml of justino-colored fluid were removed from the peritoneal cavity. The catheter was removed and a sterile dressing was applied. The procedure was well tolerated. US/Paracentesis with US IMPRESSION: Ultrasound guided paracentesis. Electronically Signed: Felipe Nguyen, at 10:44 EDT , Service support ,
[2019-07-26 08:35] VITALS: BP 102/56; BP 103/53; PULSE 100; PULSE 96; RESP 16; O2SAT 97; O2SAT 98
== END ==
PROVIDERS: Family Provider Family Medicine Geriatric Medicine; PCP Family Medicine Geriatric Medicine; Referring Provider Internal Medicine Gastroenterology; Visit Provider Internal Medicine Gastroenterology
DX: K74.60 Unspecified cirrhosis of liver (principal); R18.8 Other ascites
CPT/HCPCS: 49083

== ENCOUNTER → 2019-08-02 08:08 | Outpatient (CLI) | payer MEDICARE, OTHER, SELFPAY ==
[2019-07-31 06:47] VITALS: BMI 36.0
[2019-08-02 08:53] VITALS: PULSE 103; PULSE 109; PULSE 110; PULSE 112; PULSE 93; PULSE 95; PULSE 98; O2SAT 84; O2SAT 95; O2SAT 96; O2SAT 98; O2SAT 99
--- NOTE | 2019-08-02 08:56 | CPS ---
Patient came in for testing in wheelchair. Pulse ox on RA was 84% 2L applied at that time. Test was done on 2L. [place]
--- NOTE | 2019-08-02 13:39 | PCM.PSN.6M ---
PSN 6 Minute Walk Test - 6 Minute Walk Test 6 Minute Walk Test: 6 Minute Walk Test PSN:6-Minute Walk Test Start: 08/02/19 08:53 Freq: Status: Active Protocol: RESP.6MINW Document 08/02/19 08:53 JEFFREY (Rec: 08/02/19 08:57 JEFFREY [id number]) 6 Minute Walk Test Date Performed 08/02/19 Time Performed 08:30 Height 5 ft 7 in Weight: 220 lb Weight in Pounds 220.[address]: Tirso Momin Assistive device used: None Pre-test Oxygen Delivery Method Room Air Pulse Ox (%) 84 Pulse Rate (60-100 beats/min) 93 Dyspnea Evelin Scale (0-10) 1 Exertion Evelin Scale (6-20) 6 1st minute Oxygen Flow Rate (L/min) (L/min) 2 Oxygen Delivery Method Nasal Cannula Pulse Ox (%) 96 Pulse Rate (60-100 beats/min) 98 2nd minute Oxygen Flow Rate (L/min) (L/min) 2 Oxygen Delivery Method Nasal Cannula Pulse Ox (%) 95 Pulse Rate (60-100 beats/min) 103 H 3rd minute Oxygen Flow Rate (L/min) (L/min) 2 Oxygen Delivery Method Nasal Cannula Pulse Ox (%) 96 Pulse Rate (60-100 beats/min) 110 H 4th minute Oxygen Flow Rate (L/min) (L/min) 2 Oxygen Delivery Method Nasal Cannula Pulse Ox (%) 96 Pulse Rate (60-100 beats/min) 109 H 5th minute Oxygen Flow Rate (L/min) (L/min) 2 Oxygen Delivery Method Nasal Cannula Pulse Ox (%) 98 Pulse Rate (60-100 beats/min) 112 H 6th minute Oxygen Flow Rate (L/min) (L/min) 2 Oxygen Delivery Method Nasal Cannula Pulse Ox (%) 96 Pulse Rate (60-100 beats/min) 110 H Dyspnea Evelin Scale (0-10) 3 Exertion Evelin Scale (6-20) 13 Post-test Oxygen Flow Rate (L/min) (L/min) 2 Oxygen Delivery Method Nasal Cannula Pulse Ox (%) 99 Pulse Rate (60-100 beats/min) 95 Full Laps Walked 6 Partial Lap, Number of Tiles Walked 0 Total Distance Walked (ft) 354 08/02/19 08:56 Cardiopulmonary Services by Velia Morris Patient came in for testing in wheelchair. Pulse ox on RA was 84% 2L applied at that time. Test was done on 2L. [place] Initialized on 08/02/19 08:56 - END OF NOTE - Interpretation Interpretation: The patient ambulated 354 feet over the course of 6 minutes beginning on room air with the use of a pushed wheelchair. Pretesting oxygen saturation was noted to be 84% on room air. 2 L of oxygen was subsequently applied prior to the initiation of testing. With ambulation, the vineet oxygen saturation was 95%. The patient did become progressively tachycardic with exertion. This testing indicates the presence of impaired walk distance and a pulmonary limitation to exercise tolerance. - Recommendations Recommendations: 2 L/min of supplemental oxygen should be utilized at all times.
== END ==
PROVIDERS: Family Provider Family Medicine Geriatric Medicine; PCP Family Medicine Geriatric Medicine; Referring Provider Internal Medicine Critical Care Medicine; Visit Provider Internal Medicine Critical Care Medicine
DX: J67.0 Farmer's lung (principal); J84.9 Interstitial pulmonary disease, unspecified
CPT/HCPCS: 94618

== ENCOUNTER → 2019-08-03 12:03 | Outpatient (CLI) | payer MEDICARE, OTHER, SELFPAY ==
[2019-01-29 08:15] VITALS: BMI 42.9
[2019-07-31 06:47] VITALS: BMI 36.0
--- NOTE | 2019-08-03 12:21 | US_ITS ---
PROCEDURE: Ultrasound guided paracentesis. DATE OF EXAMINATION: August 03, 2019. INDICATION: Male, 78 years old. Ascites. PHYSICIAN: Felipe Nguyen M.D. TECHNIQUE: The risks, benefits, and alternatives to the procedure were explained to the patient. The specific risks of bleeding, infection, and damage to bowel were detailed and accepted. Witnessed informed consent was obtained. The abdomen was ultrasonographically surveyed. An appropriate pocket of fluid was identified at the left lower quadrant. The skin were cleaned and prepped in the usual sterile fashion. Using ultrasound guidance, the peritoneal cavity was accessed with a 5-Indonesian paracentesis needle/catheter system. The trocar was removed. A total of 3600 ml of justino-colored fluid were removed from the peritoneal cavity. The catheter was removed and a sterile dressing was applied. The procedure was well tolerated. US/Paracentesis with US IMPRESSION: Ultrasound guided paracentesis. Electronically Signed: Felipe Nguyen, at 14:52 EST , Service support ,
[2019-08-03 12:32] VITALS: BP 105/52; BP 91/54; BP 98/56; PULSE 84; PULSE 85; PULSE 86; RESP 16; RESP 18; O2SAT 99
[2019-08-03 12:33] LABS: International Normalized Ratio 1.6; Prothrombin Time (Protime)PT. 18.7 SECONDS (11.7-14.9)
[2019-08-03 12:34] LABS: Partial Thromboplast Time 43.3 Seconds (24.1-36.2)
[2019-08-03 13:14] LABS: Albumin, Serum 1.6 g/dL (3.2-5.0); BUN 71 mg/dL (7-18); BUN/Creat Ratio 19.3 RATIO (10-20); Calcium,Total 7.7 mg/dL (8.5-10.1); Chloride 108 mmol/L (98-107); Creatinine, Serum 3.68 mg/dL (0.70-1.30); EST Glomerular Filtration Rate 17 mL/min (>60); Est Glom Filt Rate - Afr Amer 21 mL/min (>60); Glucose 236 mg/dL (74-106); Phosphorus 3.1 mg/dL (2.5-4.9); Potassium 3.3 mmol/L (3.5-5.1); Sodium Level 139 mmol/L (136-145)
== END ==
PROVIDERS: Family Provider Family Medicine Geriatric Medicine; PCP Internal Medicine Nephrology; Referring Provider Internal Medicine Gastroenterology; Visit Provider Internal Medicine Gastroenterology
DX: K74.60 Unspecified cirrhosis of liver (principal); R18.8 Other ascites; N17.9 Acute kidney failure, unspecified
CPT/HCPCS: 36415; 49083; 80069; 85610; 85730

== ENCOUNTER → 2019-08-10 12:15 | Outpatient (CLI) | payer SELFPAY ==
[2019-01-29 08:15] VITALS: BMI 42.9
[2019-07-31 06:47] VITALS: BMI 36.0
--- NOTE | 2019-08-10 12:17 | US_ITS ---
PROCEDURE: Ultrasound guided paracentesis. DATE OF EXAMINATION: August 10, 2019. INDICATION: Male, 78 years old. Ascites. PHYSICIAN: Felipe Nguyen M.D. TECHNIQUE: The risks, benefits, and alternatives to the procedure were explained to the patient. The specific risks of bleeding, infection, and damage to bowel were detailed and accepted. Witnessed informed consent was obtained. The abdomen was ultrasonographically surveyed. An appropriate pocket of fluid was identified at the right lower quadrant. The skin were cleaned and prepped in the usual sterile fashion. Using ultrasound guidance, the peritoneal cavity was accessed with a 5-Albanian paracentesis needle/catheter system. The trocar was removed. A total of 2950 ml of justino-colored fluid were removed from the peritoneal cavity. The catheter was removed and a sterile dressing was applied. The procedure was well tolerated. US/Paracentesis with US IMPRESSION: Ultrasound guided paracentesis. Electronically Signed: Felipe Nguyen, at 13:28 EST , Service support ,
[2019-08-10 12:40] VITALS: BP 85/44; BP 98/35; PULSE 86; PULSE 88; RESP 16; RESP 18; O2SAT 100; O2SAT 98
== END ==
PROVIDERS: Family Provider Family Medicine Geriatric Medicine; PCP Internal Medicine Nephrology; Referring Provider Internal Medicine Gastroenterology; Visit Provider Internal Medicine Gastroenterology
DX: K74.60 Unspecified cirrhosis of liver (principal); R18.8 Other ascites
CPT/HCPCS: 49083

== ENCOUNTER → 2019-08-17 12:11 | Outpatient (CLI) | payer SELFPAY ==
[2019-01-29 08:15] VITALS: BMI 42.9
[2019-07-31 06:47] VITALS: BMI 36.0
--- NOTE | 2019-08-17 12:12 | US_ITS ---
PROCEDURE: Ultrasound guided paracentesis. DATE OF EXAMINATION: August 17, 2019. INDICATION: Male, 78 years old. Ascites. PHYSICIAN: Felipe Nguyen M.D. TECHNIQUE: The risks, benefits, and alternatives to the procedure were explained to the patient. The specific risks of bleeding, infection, and damage to bowel were detailed and accepted. Witnessed informed consent was obtained. The abdomen was ultrasonographically surveyed. An appropriate pocket of fluid was identified at the right lower quadrant. The skin were cleaned and prepped in the usual sterile fashion. Using ultrasound guidance, the peritoneal cavity was accessed with a 5-Telugu paracentesis needle/catheter system. The trocar was removed. A total of 2550 ml of justino-colored fluid were removed from the peritoneal cavity. The catheter was removed and a sterile dressing was applied. The procedure was well tolerated. US/Paracentesis with US IMPRESSION: Ultrasound guided paracentesis. Electronically Signed: Felipe Nguyen, at 13:53 EST , Service support ,
[2019-08-17 12:41] VITALS: BP 91/48; BP 98/45; BP 98/51; PULSE 89; PULSE 93; RESP 16; RESP 18; O2SAT 100
== END ==
PROVIDERS: Family Provider Family Medicine Geriatric Medicine; PCP Family Medicine Geriatric Medicine; Referring Provider Internal Medicine Gastroenterology; Visit Provider Internal Medicine Gastroenterology
DX: K74.60 Unspecified cirrhosis of liver (principal); R18.8 Other ascites
CPT/HCPCS: 49083

== ENCOUNTER → 2019-08-24 12:03 | Outpatient (CLI) | payer SELFPAY ==
[2019-01-29 08:15] VITALS: BMI 42.9
[2019-07-31 06:47] VITALS: BMI 36.0
--- NOTE | 2019-08-24 12:05 | US_ITS ---
PROCEDURE: ULTRASOUND GUIDED PARACENTESIS CLINICAL HISTORY: Male, 78 years old. CONSENT: Time-Out Called: Yes. Consent form signed: Yes. PT-PTT Levels Checked: Yes. SEDATION: TECHNIQUE: FINDINGS: FLUID PRE-PROCEDURE Under ultrasound guidance and following proper antiseptic preparation and local anesthesia, a 6 Panamanian draining catheter was inserted in the right lower quadrant. 2450cc of clear yellow fluid drained. The patient tolerated the procedure well. US/Paracentesis with US IMPRESSION: Uneventful paracentesis Electronically Signed: Kleber Velasquez, at 15:19 EST Tel , Service support ,
[2019-08-24 12:47] VITALS: BP 87/52; BP 92/58; BP 93/37; BP 93/43; BP 93/53; PULSE 89; PULSE 90; PULSE 93; PULSE 96; RESP 16; O2SAT 100; O2SAT 99
== END ==
PROVIDERS: Family Provider Family Medicine Geriatric Medicine; PCP Family Medicine Geriatric Medicine; Referring Provider Internal Medicine Gastroenterology; Visit Provider Internal Medicine Gastroenterology
DX: K74.60 Unspecified cirrhosis of liver (principal); R18.8 Other ascites
CPT/HCPCS: 49083

== ENCOUNTER 2019-09-03 05:21 | Day surgery (SDC) | payer MEDICARE, OTHER, SELFPAY ==
[2019-07-31 06:47] VITALS: BMI 36.0
--- NOTE | 2019-09-02 11:11 | HP.PCM_ITS ---
History and Physical Date of Admission: 09/03/19 HISTORY AND PHYSICAL ? Ozzie Okeefe 1940 ? ? REFERRING PHYSICIAN: ??Vega, ? CHIEF COMPLAINT: ??pleurx catheter consult ? HPI: The patient is a 78 year old male with a diagnosis of?nonalcoholic steatohepatitis with intractable ascites. ?Ozzie is have recurrent accumulation of ascites with weekly paracenteses ranging from 3-5 L. ?The patient is referred for evaluation for placement of a tunnelled abdominal?catheter or Pleurex catheter.??The patient will be starting hospice treatment given his progressive cirrhosis ? PAST MEDICAL HISTORY PAST MEDICAL HISTORY Diagnosis Date ? Ascites ? ? Cirrhosis (HCC) ? ? COPD (chronic obstructive pulmonary disease) (HCC) ? ? ZAPATA (nonalcoholic steatohepatitis) ? ? Renal failure ? ? ? PAST SURGICAL HISTORY History reviewed. No pertinent surgical history. ? ? CURRENT MEDICATIONS Current Outpatient Medications Medication Sig Dispense Refill ? lactulose (DUPHALAC, CONSTULOSE) 20 gram/30 mL solution 45 mL q 24 HR. ? ? ? albuterol (PROVENTIL) 2.5 mg /3 mL (0.083 %) nebulizer solution 3 mL. ? ? ? albuterol HFA (PROAIR HFA) 90 mcg/actuation inhaler q 4 HR. ? ? ? allopurinol (ZYLOPRIM) 100 mg tablet q 24 HR. ? ? ? budesonide-formoterol (SYMBICORT) 160-4.5 mcg/actuation inhaler Symbicort 160 mcg-4.5 mcg/actuation HFA aerosol inhaler ?Inhale 2 puffs twice a day by inhalation route. ? ? ? citalopram (CELEXA) 20 mg tablet ? doxazosin (CARDURA) 4 mg tablet q 24 HR. ? ? ? furosemide (LASIX) 80 mg tablet q 24 HR. ? ? ? montelukast (SINGULAIR) 10 mg tablet q 24 HR. ? ? ? rifAXIMin (RIFAXIMIN) 550 mg tab Xifaxan 550 mg tablet ?Take 1 tablet twice a day by oral route. ? ? ? rosuvastatin (CRESTOR) 10 mg tablet q 24 HR. ? ? ? No current facility-administered medications for this visit.? ? ALLERGIES:?Patient has no allergy information on record. ? PERSONAL HISTORY:? SOCIAL HISTORY Social History ? Tobacco Use ? Smoking status: Never Smoker ? Smokeless tobacco: Never Used Substance Use Topics ? Alcohol use: Not on file ? Drug use: Not on file ? FAMILY HISTORY:? FAMILY HISTORY History reviewed. No pertinent family history. ? REVIEW OF SYMPTOMS: ??The review of systems data was entered by the nurse and reviewed by me ? REVIEW OF SYSTEMS: ?General: ??The patient NOTES?fatigue, denies weight loss, denies weight gain, denies feeling hot, and feelings of cold. ?Eyes: ?The patient denies glaucoma, denies eye injury/surgery, denies glasses or contacts. ?Ear/Nose/Throat: ?The patient denies allergies, denies hayfever, denies ear infections, and denies bloody noses. ?Cardiovascular: ?The patient denies chest pain, denies heart disease, denies high blood pressure, denies high cholesterol, and denies poor circulation. ?Respiratory: ?The patient denies tuberculosis, denies pneumonia, denies frequent cough, NOTES?shortness of breath, and denies coughing up blood. ?Gastrointestinal: ?The patient denies difficulty swallowing, denies acid reflux, denies ulcers, denies jaundice/hepatitis, denies gallbladder problems, denies vomiting, denies black or tarry stools, denies hemorrhoids, denies bleeding from rectum, denies diverticulitis, denies constipation, denies diarrhea, denies loss of stool control, and denies hernias. ?Kidney/Bladder: ?The patient denies kidney stones, denies urine infections, and denies bloody urine. ?Skin: ?The patient denies a history of skin cancer, denies bleeding/changing moles, and denies a history of skin rash. ?Neurologic: ?The patient denies a history of epilepsy/convulsions, denies headaches, denies head/spinal injuries, and denies stroke/TIA. ?Psychiatric: ?The patient denies psychiatric medications, denies depression, and denies voices. ?Endocrine: ?The patient denies thyroid disorders, denies diabetes, and denies hormonal problems. ?Hematologic: ?The patient denies a history of bruising, denies bleeding, and denies anemia. ?Infections: ?The patient denies a history of measles and mumps, denies rheumatic fever, and denies sexually transmitted diseases. ?Musculoskeletal: ?The patient denies back pain/injury, denies back problems, denies sciatica, denies knee/foot trouble, denies arthritis, or denies gout. ? CT scan was reviewed images demonstrated significant ascites? ? ? PHYSICAL EXAMINATION: ? General: ?The patient is 78 year old male, well nourished, well hydrated in no acute distress. ?The patient is oriented to time, place, and person. ? VITALS:?Blood pressure (!) 108/46, pulse 102, temperature 36.6 ?C (97.8 ?F), temperature source Temporal, resp. rate 18, height 170.2 cm (5' 7), weight 101.2 kg (223 lb), SpO2 97 %.?Body mass index is 34.93 kg/m?.? ? HEENT: ?Normal cephalic, ataumatic, pupils are equally round, sclera are anicteric, mucous membranes are moist, oropharynx is clear. ?Neck has no masses, asymmetry or lymphadenopathy. ?Thyroid is unremarkable. ? Respiratory: ?Clear to auscultation and percussion. ?Normal respiratory excursion and pattern. ? Cardiac: ?Examination is regular rate and rhythm. ? Abdominal exam: ?Soft, nontender, ?with no palpable masses. ?Significant ascites with shifting dullness fluid wave. ?No palpable hernias. ? Rectal exam:??exam deferred ? Extremities: ?no clubbing, cyanosis or edema. ?No adenopathy. ? Other: ? ? LABORATORY VALUES: As Noted ? RADIOLOGIC STUDIES: ?As Noted ? Assessment ? IMPRESSION:??Nonalcoholic steatohepatitis with cirrhosis, recurrent?intractable ascites ? PLAN: ??I plan to perform a tunnelled abdominal?catheter or Pleurex catheter placement. ?The planned surgical procedure was discussed extensively with the patient. ?The risks, benefits, anticipated outcomes and possible complications were mentioned. ?My staff has also explained the procedure in understandable terms and the patient was given the option to take printed material concerning the planned procedure. ?The patient had the opportunity to ask questions concerning the planned procedure. ?The patient freely consents to the planned procedure. ? Anticipated Surgical Procedure/ CPT Code:?51945 - Insertion of Tunnelled Intraperitoneal Catheter and 33194 - Ultrasound Guidance for Needle Placement ? Anticipated Anesthetic:?MAC with local ? Patient weight:??Blood pressure (!) 108/46, pulse 102, temperature 36.6 ?C (97.8 ?F), temperature source Temporal, resp. rate 18, height 170.2 cm (5' 7), weight 101.2 kg (223 lb), SpO2 97 %.?BMI: ?Body mass index is 34.93 kg/m?. ? Planned antibiotic:?Ancef 2gm IVPB vice president of contracts to OR ? SCDs needed -?No ? Screwdown Operator Needed -?No ?? ? Diagnoses:?(K74.60, ?R18.8) Cirrhosis of liver with ascites, unspecified hepatic cirrhosis type (HCC) ?(primary encounter diagnosis) (K75.81) Nonalcoholic steatohepatitis (ZAPATA) ? ? The patient is being seen by me today at the request of ?for my opinion and advice regarding intractable ascites.? Xavi Galloway MD
[2019-09-03 07:00] VITALS: BP 80/44; PULSE 106; RESP 20; TEMP 36.2; O2SAT 97; BMI 33.9
[2019-09-03] MEDS: Cefazolin 2 GM in 0.9% Normal Saline 100 ML IV (07:39)
--- NOTE | 2019-09-03 08:03 | SUR.OPER ---
Med Student - Sarah Odonnell assisted Dr Galloway
[2019-09-03] MEDS: Bupivacaine Mpf 0.5% 30 ML VIAL (08:20)
--- NOTE | 2019-09-03 08:30 | OP.PCM_ITS ---
Report of Operation Date of Procedure: 09/03/19 Pre-Operative Diagnosis: intractable ascites secondary to ZAPATA Post-Operative Diagnosis: intractable ascites secondary to ZAPATA, successful RLQ tunneled catheter placement Surgery/Procedure Performed:: ulrasound guided tunneled peritoneal catheter/pleurex catheter for ascites primary montessori teacher: None Type of Anesthesia:: Local MAC Anesthesiologist: Les Ly - ASA3 Specimen's removed: 2000cc + ascites - discarded Drains: catheter, alberts changed Estimated Blood Loss (mL): 10 Fluids Replaced: 300 Description of Procedure: The patient was brought to the operating suite. Sign was performed verifying patient, site, position, skip antibiotic prophylaxis-2 g of Ancef. Ultrasound was used to evaluate the lower abdomen and a window marked providing good entry into the peritoneal cavity along with marking the inferior epigastric to avoid the risks for bleeding was marked on the skin in the Following IV sedation, abdomen were prepped and draped in the usual fashion. Timeout was performed verifying patient, site, position. Local anesthetic was injected and a Seldinger needle was used to access the peritoneal cavity without difficulty. A guidewire was inserted and advanced into the peritoneal space. Local anesthetic was injected and incision made for the catheter exit site. Next the catheter was tunneled from the skin exit site to the wire. Dilators were placed over the wire until the largest dilator with introducer sheath were placed. The wire and dilator removed. The catheter was fed through the introducer suture sheath and adjusted to the edge of the abdominal cavity with the fenestrations . There was good return of ascites fluid. The Pleurx catheter was affixed to an adapter and ascetic fluid was drained. A total of approximately 2000 cc of fluid was drained. The catheter was secured with a 3-0 silk suture at the skin exit site. The abdominal insertion site skin was closed with 4-0 Biosyn interrupted subcuticular sutures. Dermabond was applied to the abdominal insertion site. A dressing was applied. The catheter was then capped and dressed with the occlusive dressing The patient was brought to recovery room in stable condition. Grafts/Implants Used: pleurex catheter Lot [id number], exp 09/25/2019
--- NOTE | 2019-09-03 08:39 | DCINST_ITS ---
Discharge Diet: Light diet - advance as tolerated - If you have questions about your diet instructions, please talk to your doctor. Discharge Activity: May Not Drive - for 1 week or while taking narcotic pain meds. May shower in (days): 1 Lifting Restrictions: 10 pounds Call your doctor if your incision/area has: Continuous Slow Oozing, Sudden Increased Bleeding, Increased Pain/ Swelling, Increased Redness, Foul Smelling Discharge Call your doctor if you observe: Fever of 101 or Higher Suture Line Care: Avoid Pulling/Pushing, Avoid Pinching/Bending Additional Dressing/Incision Instructions:: have hospice drain 1L from catheter every 2-3 days. Allergies/Adverse Reactions: Allergies No Known Allergies Allergy (Verified 08/30/19 10:02) Medications to take at Discharge Allopurinol [Zyloprim] 100 mg PO DAILYCM 01/28/15 Citalopram [Celexa] 20 mg PO QODAY 01/28/15 Doxazosin Mesylate [Cardura] 4 mg PO QHS 01/28/15 Montelukast [Singulair] 10 mg PO DAILY 01/28/15 Rosuvastatin Calcium [Crestor] 10 mg PO QHS 01/28/15 Albuterol IH (ProAir) [Proair Hfa (SP)Vent Pts] 2 puff INHALATION Q4H PRN PRN 02/13/15 Albuterol Aerosols [Ventolin Aerosols] 2.5 mg INHALATION Q6H PRN PRN 02/21/15 budesonide-formoterol HFA 160 mcg-4.5 mcg/actuation aerosol inhaler 2 puff INHALATION BID #1 ea 07/31/19 furosemide 20 mg tablet 40 mg PO MOWEFR tab 07/31/19 lactulose 10 gram/15 mL oral solution 15 ml PO PRN PRN #2365 ml 07/31/19 Rifaximin [Xifaxan] 200 mg PO DAILY 08/30/19 Oxycodone [Oxyir] 5 mg PO Q4H PRN PRN 4 Days #8 tab 09/03/19 The following prescriptions were given: Oxycodone [Oxyir] 5 mg PO Q4H PRN PRN 4 Days #8 tab PRN Reason: Pain Score 6-10/10 Prescription Printed Primary Care Physician: Saul Gonzalez Chi, MD [Primary Care Provider] - Test Results: Test results from this visit will be discussed in further detail at your follow- up appointment, if applicable. Please Follow Up With: Xavi Galloway MD - [phone] When: Call to make an appointment to be seen in about 10 days.
[2019-09-03 08:42] VITALS: BP 80/44; BP 96/44; PULSE 104; RESP 20; TEMP 36.4; O2SAT 100
[2019-09-03 08:45] VITALS: BP 80/44; BP 82/49; PULSE 105; RESP 20; O2SAT 98
[2019-09-03 08:50] VITALS: BP 80/44; BP 90/63; PULSE 104; RESP 20; O2SAT 97
[2019-09-03 08:54] VITALS: BP 78/45; BP 80/44; PULSE 104; RESP 20; TEMP 36.3; O2SAT 97
[2019-09-03 09:30] VITALS: BP 80/44
== END 2019-09-03 11:13 | disposition hospice, inpatient (51) ==
LOC: SDC 05:22 → AC 05:23
PROVIDERS: Family Provider Family Medicine Geriatric Medicine; PCP Family Medicine Geriatric Medicine; Referring Provider Surgery; Visit Provider Surgery
PROC: 0WHG43Z Insertion of Infusion Device into Peritoneal Cavity, Percutaneous Endoscopic Approach (ICD-10-PCS; CPT 49324; principal; 2019-09-03 07:00)
DX: K75.81 Nonalcoholic steatohepatitis (NASH) (principal); K74.60 Unspecified cirrhosis of liver; R18.8 Other ascites; J67.0 Farmer's lung; J44.9 Chronic obstructive pulmonary disease, unspecified; N19 Unspecified kidney failure; F32.9 Major depressive disorder, single episode, unspecified; E66.01 Morbid (severe) obesity due to excess calories; Z68.34 Body mass index [BMI] 34.0-34.9, adult; Z99.81 Dependence on supplemental oxygen; Z79.899 Other long term (current) drug therapy
CPT/HCPCS: 00840; 49418; J7120; A4216; C1729